=== PATIENT | female | born 1945 | race African-American/Black ===

== ENCOUNTER → 2016-08-21 | Outpatient (CLI) | payer MEDICARE ==
[2016-08-21 17:17] LABS: ABSOLUTE EOSINOPHILS # (AUTO) 0.2 10^3/uL (0.0-0.6); ABSOLUTE LYMPHOCYTES (AUTO) 1.2 10^3/uL (0.5-4.7); ABSOLUTE MONOCYTES (AUTO) 0.5 10^3/uL (0.1-1.4); ABSOLUTE NEUT (AUTO) 1.9 10^3/uL (1.7-8.2); BASOPHILS % (AUTO) 0.9 % (0-2); EOSINOPHILS % (AUTO) 4.9 % (0-6); HEMATOCRIT 30.6 % (36.0-47.0); HEMOGLOBIN 9.9 g/dL (12.0-15.5); HGB HCT DIFFERENCE -0.9; LYMPHOCYTES % (AUTO) 31.4 % (13-45); MEAN CORPUSCULAR HEMOGLOBIN 25.4 pg (27.0-33.4); MEAN CORPUSCULAR HGB CONC 32.3 g/dL (32.0-36.0); MEAN CORPUSCULAR VOLUME 79 fl (80-97); MONOCYTES % (AUTO) 12.2 % (3-13); RED BLOOD COUNT 3.89 10^6/uL (3.72-5.28); SEGMENTED NEUTROPHILS % (AUTO) 50.6 % (42-78); WHITE BLOOD COUNT 3.8 10^3/uL (4.0-10.5)
[2016-08-21 17:39] LABS: ALANINE AMINOTRANSFERASE 28 U/L (9-52); ALBUMIN 4.4 g/dL (3.5-5.0); ALKALINE PHOSPHATASE 73 U/L (38-126); ANION GAP 11 (5-19); ASPARTATE AMINO TRANSFERASE 22 U/L (14-36); BILIRUBIN,DIRECT 0.2 mg/dL (0.0-0.4); BILIRUBIN,TOTAL 0.5 mg/dL (0.2-1.3); BLOOD UREA NITROGEN 20 mg/dL (7-20); CALCIUM 9.9 mg/dL (8.4-10.2); CARBON DIOXIDE 31 mmol/L (22-30); CHLORIDE 102 mmol/L (98-107); CHOLESTEROL 160.55 mg/dL (0-200); CREATININE RESULT 0.59 mg/dL (0.52-1.25); Direct HDL 87 mg/dL (>40); GLUCOSE 84 mg/dL (75-110); MAGNESIUM 1.7 mg/dL (1.6-2.3); POTASSIUM 4.1 mmol/L (3.6-5.0); SODIUM 144.3 mmol/L (137-145); TOTAL PROTEIN 7.6 g/dL (6.3-8.2); TRIGLYCERIDES 49 mg/dL (<150)
[2016-08-21 17:50] LABS: DIRECT LDL 47 mg/dL (<100)
== END ==
LOC: OD 16:10
PROVIDERS: ATTEND Family Medicine
DX: R73.9 Hyperglycemia, unspecified (principal); E78.5 Hyperlipidemia, unspecified; E87.6 Hypokalemia; G31.84 Mild cognitive impairment of uncertain or unknown etiology; Z79.899 Other long term (current) drug therapy; E55.9 Vitamin D deficiency, unspecified
CPT/HCPCS: 36415; 80053; 80061; 82306; 82607; 83036; 83735; 84443; 85025; 86592

== ENCOUNTER 2016-09-15 16:53 | Inpatient (IN) | payer MEDICARE ==
--- NOTE | 2016-09-15 17:13 | ER Document Report ---
ED Respiratory Problem - General Mode of Arrival: Wheelchair Information source: Patient, Relative TRAVEL OUTSIDE OF THE [place] IN LAST 30 DAYS: No - HPI Patient complains to provider of: Short of breath Onset: Other - last few days Duration: Worse/persistent Severity: Moderate Short of Breath: Moderate Cough: Productive <LIS GARDNER - Last Filed: 09/15/16 20:02> <ETHAN PATRICK - Last Filed: 09/15/16 23:47> - General Chief Complaint: Chest Pain Stated Complaint: CHEST PAIN Notes: Patient is a 71-year-old female that presents to the emergency department today with complaints of shortness of breath. Patient states this morning around 1000 -1100 the patient's shortness of breath became worse. Patient states she has "not been feeling well" for the last few days. Patient states she has had a fever and a cough as well as chest tightness. Patient states she used her C- Pap prior to arrival which did not alleviate her shortness of breath. Patient denies a history of asthma, COPD, or congestive heart failure. (LIS GARDNER) - Related Data Allergies/Adverse Reactions: No Known Allergies Allergy (Verified 07/18/12 09:20) Home Medications: Current Home Medications Atorvastatin Calcium 10 mg PO DAILY 09/15/16 [History] Diclofenac Sodium [Voltaren] 75 mg PO BID 09/15/16 [History] Diltiazem HCl [Cartia Xt] 120 mg PO DAILY 09/15/16 [History] Fesoterodine Fumarate [Toviaz] 8 mg PO DAILY 09/15/16 [History] Gabapentin [Gabapentin] 600 mg PO BID 09/15/16 [History] Ramelteon [Rozerem] 8 mg PO QHS 09/15/16 [History] Triamcinolone Acetonide [Aristocort 0.1% Cream 15 gm] 1 applic TP BID 09/15/16 [ History] Zolpidem Tartrate 5 mg PO QHS 09/15/16 [History] Past Medical History - General Information source: Patient, Relative, [facility] Records - Social History Smoking Status: Unknown if Ever Smoked Cigarette use (# per day): No Frequency of alcohol use: None Drug Abuse: None Lives with: Family Family History: Reviewed & Not Pertinent, Arthritis, CAD - chf, DM, Hypertension , Malignancy - Past Medical History Cardiac Medical History: Reports: Hx Hypercholesterolemia, Hx Hypertension Endocrine Medical History: Reports: Hx Diabetes Mellitus Type 2 - pre diabetic Musculoskeltal Medical History: Reports Hx Arthritis - both knees Past Surgical History: Reports: Hx Cholecystectomy, Hx Hysterectomy, Hx Orthopedic Surgery - carpal tunnel, knee - Immunizations Immunizations up to date: Yes Hx Diphtheria, Pertussis, Tetanus Vaccination: Yes <LIS GARDNER - Last Filed: 09/15/16 20:02> Review of Systems - Review of Systems Constitutional: See HPI, Fever EENT: No symptoms reported Cardiovascular: See HPI, Chest pain - chest tightness Respiratory: See HPI, Cough, Short of breath, Wheezing Gastrointestinal: No symptoms reported Genitourinary: No symptoms reported Female Genitourinary: No symptoms reported Musculoskeletal: No symptoms reported Skin: No symptoms reported Hematologic/Lymphatic: No symptoms reported Neurological/Psychological: No symptoms reported -: Yes All other systems reviewed and negative <LIS GARDNER - Last Filed: 09/15/16 20:02> Physical Exam - Vital signs Interpretation: Hypoxic, Tachypneic - General General appearance: Alert In distress: Moderate - Respiratory Respiratory status: Respiratory distress, Depressed respirations Breath sounds: Decreased air movement - Cardiovascular Rhythm: Regular - Abdominal Inspection: Normal Tenderness: Nontender - Extremities General upper extremity: Normal inspection, Normal ROM General lower extremity: Normal inspection, Normal ROM - Neurological Neuro grossly intact: Yes Cognition: Normal Orientation: AAOx4 [place] Coma Scale Eye Opening: Spontaneous Jada Coma Scale Verbal: Oriented [place] Coma Scale Motor: Obeys Commands Jada Coma Scale Total: 15 - Psychological Associated symptoms: Normal affect, Normal mood <ETHAN PATRICK - Last Filed: 09/15/16 23:47> - Vital signs Vitals: Temp Pulse BP Pulse Ox 100.3 F 77 151/96 H 83 L 09/15/16 17:04 09/15/16 17:04 09/15/16 17:04 09/15/16 17:04 Course - Laboratory Result Diagrams: 09/15/16 17:25 09/15/16 18:45 <LIS GARDNER - Last Filed: 09/15/16 20:02> - Laboratory Result Diagrams: 09/15/16 17:25 09/15/16 18:45 <ETHAN PATRICK - Last Filed: 09/15/16 23:47> - Re-evaluation Re-evalutation: 09/15/16 Patient is a 71-year-old female who comes in with cough, hypoxemia, and dyspnea. Patient also febrile. Patient with chest x-ray concerning for pneumonia. Patient denies chest pain. Patient also with slight expiratory wheeze. Given DuoNeb. Started on antibiotics. Patient will be admitted to the [facility] under the hospitalist service. Understands and agrees with plan. Family agrees with plan. Stable time of admission. (ETHAN PATRICK) - Vital Signs Vital signs: Temp Pulse Resp BP Pulse Ox 98.6 F 84 20 141/60 H 100 09/15/16 23:19 09/15/16 23:19 09/15/16 23:19 09/15/16 23:19 09/15/16 23:19 - Laboratory Laboratory results interpreted by me: 09/15/16 09/15/16 09/15/16 17:25 17:25 18:10 Hgb 9.8 L Hct 29.9 L MCV 79 L MCH 26.0 L RDW 14.8 H Seg Neutrophils % 80.8 H Lymphocytes % 11.9 L VBG pH 7.44 H Potassium Creatinine NT-Pro-B Natriuret Pep Urine Ascorbic Acid 40 H 09/15/16 09/15/16 18:45 18:45 Hgb Hct MCV MCH RDW Seg Neutrophils % Lymphocytes % VBG pH Potassium 3.5 L Creatinine 0.51 L NT-Pro-B Natriuret Pep 921 H Urine Ascorbic Acid Critical Care Note - Critical Care Note Total time excluding time spent on procedures (mins): 40 - evaluation and management of respiratory distress, multiple re-evaluations, coordination of admission, counseling of patient and family, initiation of antibiotics for pneumonia <ETHAN PATRICK - Last Filed: 09/15/16 23:47> Discharge <LIS GARDNER - Last Filed: 09/15/16 20:02> - Discharge Admitting Provider: Deshawnist - [facility] Unit Admitted: [facility] <ETHAN PATRICK - Last Filed: 09/15/16 23:47> - Discharge Clinical Impression: Hypoxemia, Respiratory distress Pneumonia Qualifiers: Pneumonia type: due to unspecified organism Laterality: unspecified laterality Lung location: unspecified part of lung Qualified Code(s): J18.9 - Pneumonia, unspecified organism Condition: Stable Disposition: ADMITTED INPATIENT Scribe Attestation: 09/15/16 23:47 I personally performed the services described in the documentation, reviewed and edited the documentation which was dictated to the scribe in my presence, and it accurately records my words and actions. (ETHAN PATRICK) Scribe Documentation - Scribe Written by Scribe:: Blake Casiano, 09/15/2016 acting as scribe for :: Adiel <LIS GARDNER - Last Filed: 09/15/16 20:02>
[2016-09-15 17:45] LABS: ABSOLUTE EOSINOPHILS # (AUTO) 0.1 10^3/uL (0.0-0.6); ABSOLUTE LYMPHOCYTES (AUTO) 0.9 10^3/uL (0.5-4.7); ABSOLUTE MONOCYTES (AUTO) 0.4 10^3/uL (0.1-1.4); ABSOLUTE NEUT (AUTO) 6.1 10^3/uL (1.7-8.2); BASOPHILS % (AUTO) 0.6 % (0-2); EOSINOPHILS % (AUTO) 0.8 % (0-6); HEMATOCRIT 29.9 % (36.0-47.0); HEMOGLOBIN 9.8 g/dL (12.0-15.5); HGB HCT DIFFERENCE -0.5; LYMPHOCYTES % (AUTO) 11.9 % (13-45); MEAN CORPUSCULAR HGB CONC 32.7 g/dL (32.0-36.0); MEAN CORPUSCULAR VOLUME 79 fl (80-97); MONOCYTES % (AUTO) 5.9 % (3-13); RED BLOOD COUNT 3.76 10^6/uL (3.72-5.28); RED CELL DISTRIBUTION WIDTH 14.8 % (11.5-14.0); SEGMENTED NEUTROPHILS % (AUTO) 80.8 % (42-78); WHITE BLOOD COUNT 7.5 10^3/uL (4.0-10.5)
[2016-09-15 17:49] LABS: VENOUS BLOOD BASE EXCESS 6.8 mmol/L; VENOUS BLOOD HCO3 31.8 mmol/L (20-32); VENOUS BLOOD PCO2 47.6 mmHg (35-63); VENOUS BLOOD PH 7.44 (7.30-7.42)
[2016-09-15] MEDS ORDERED: ACETAMINOPHEN 325 MG TABLET PO ONE (17:50)
[2016-09-15 17:52] LABS: PROTHROMBIN TIME 13.2 SEC (11.4-15.4)
--- NOTE | 2016-09-15 18:02 | EKG REPORT ---
SEVERITY:- ABNORMAL ECG - SINUS RHYTHM R WAVE PROGRESSION, ANTERIOR LEADS CONSIDER OLD ANATERIOR PA : Confirmed by: Newton Davis MD 15-Sep-2016 18:02:03
[2016-09-15] MEDS ORDERED: CEFTRIAXONE 1 GM/D5W RTU 50 ML IV ONE (18:03)
[2016-09-15] MEDS ORDERED: AZITHROMYCIN INJ 500 MG VIAL IV ONE (18:03)
[2016-09-15] MEDS ORDERED: IPRATROPIUM/ALBUTEROL 0.5-2.5 MG/3 ML AMPUL NEB ONE (18:06)
[2016-09-15 18:35] LABS: APPEARANCE,URINE CLEAR; BILIRUBIN,URINE NEGATIVE (NEGATIVE); GLUCOSE, URINE NEGATIVE (NEGATIVE); KETONES,URINE NEGATIVE (NEGATIVE); LEUKOCYTE ESTERASE,URINE NEGATIVE (NEGATIVE); NITRITE,URINE NEGATIVE (NEGATIVE); PROTEIN,URINE NEGATIVE (NEGATIVE); URINE SPECIFIC GRAVITY 1.011; UROBILINOGEN,URINE NEGATIVE mg/dL (<2.0)
--- NOTE | 2016-09-15 19:06 | PDOC H&P ---
History of Present Illness Admission Date/PCP: Dr Montenegro 09/15 Patient complains of: Chest pain and shortness of breath History of Present Illness: ALENA FARRIS is a 71 year old female with a known history of diabetes, hypertension nonsmoker Who presented to the ED with increasing shortness of breath over the past 2 weeks Patient states that since she cut down her dose of hydrochlorothiazide she has been more dyspneic; legs have been swollen Today she had a productive cough of yellowish mucus and became extremely dyspneic and experienced precordial chest pain She was brought to the ED for evaluation Chest pain resolved Chest x-ray was suggestive of congestive heart failure ; she was subsequently admitted under hospitalist service for further evaluation and care Past Medical History Cardiac Medical History: Reports: Hyperlipidema, Hypertension Denies: Coronary Artery Disease, Myocardial Infarction Pulmonary Medical History: Denies: Asthma, Bronchitis, Chronic Obstructive Pulmonary Disease (COPD), Pneumonia Neurological Medical History: Denies: Seizures Endocrine Medical History: Reports: Diabetes Mellitus Type 2 - pre diabetic Musculoskeltal Medical History: Reports: Arthritis - both knees Hematology: Reports: Anemia Past Surgical History Past Surgical History: Reports: Cholecystectomy, Hysterectomy, Orthopedic Surgery - carpal tunnel, knee Denies: Pacemaker Social History Lives with: Family Smoking Status: Never Smoker Hx Recreational Drug Use: No - Advance Directive Resuscitation Status: Full Code Surrogate healthcare decision maker:: Her Family History Family History: Reviewed & Not Pertinent, Arthritis, CAD - chf, DM, Hypertension , Malignancy Parental Family History Reviewed: Yes Children Family History Reviewed: Yes Sibling(s) Family History Reviewed.: Yes Medication/Allergy Home Medications: Amlodipine Besylate [Norvasc 5 mg Tablet] 5 mg PO 06/20/12 Calcium Citrate [Calcium Citrate 250 mg Tablet] 250 mg PO 06/20/12 Clonidine HCl [Catapres 0.3 mg Tablet] 0.3 mg PO 06/20/12 Diphenhydramine HCl [Benadryl] 25 mg PO 06/20/12 Ferrous Sulfate [Iron] 325 mg PO 06/20/12 Gabapentin [Neurontin 300 Mg Capsule] 300 mg PO 06/20/12 Hydrochlorothiazide 25 mg PO 06/20/12 Hydrocodone Bit/Acetaminophen [Vicodin 5-500 mg Tablet] 1 tab PO 06/20/12 Iron/Vitamin B Comp W-C [Geritol Complete Tablet] 1 each PO 06/20/12 Lisinopril [Prinivil 40 mg Tablet] 40 mg PO 06/20/12 Metformin HCl [Glumetza ER 500 mg Tablet] 500 mg PO 06/20/12 Multivitamin [Multiple Vitamin Liquid 60 ml] 1 ml PO 06/20/12 Multivitamins W-Iron [Multivitamin-Fe (Chewable) Tablet] 1 tab PO 06/20/12 Potassium Chloride [Klor-Con] 20 meq PO 06/20/12 Simvastatin [Zocor 20 mg Tablet] 20 mg PO QHS 06/20/12 Solifenacin Succinate [Vesicare] 5 mg PO 06/20/12 Solifenacin Succinate [Vesicare] 5 mg PO 06/20/12 Tolterodine Tartrate [Detrol La] 4 mg PO 06/20/12 Zolpidem Tartrate [Ambien 10 mg Tablet] 10 mg PO 06/20/12 Sulfamethoxazole/Trimethoprim [Bactrim Ds Tablet] 1 each PO BID 10 Days Lidocaine [Lidoderm 5% (700 mg) Transdermal Patch] 1 patch TP DAILY #30 adh..patch 07/21/15 Oxycodone HCl 5 mg PO Q6 #30 tablet 07/21/15 Allergies/Adverse Reactions: No Known Allergies Allergy (Verified 07/18/12 09:20) Review of Systems Constitutional: ABSENT: chills, fever(s), headache(s), weight gain, weight loss Eyes: ABSENT: visual disturbances Ears: ABSENT: hearing changes Cardiovascular: PRESENT: as per HPI, chest pain - Usually patient does not have chest pain with exertion; she is just short of breath when she ambulates fast, edema. ABSENT: dyspnea on exertion, orthropnea, palpitations Respiratory: PRESENT: cough, dyspnea, sputum. ABSENT: hemoptysis Gastrointestinal: ABSENT: abdominal pain, constipation, diarrhea, hematemesis, hematochezia, nausea, vomiting Genitourinary: ABSENT: dysuria, hematuria Musculoskeletal: ABSENT: joint swelling Integumentary: ABSENT: rash, wounds Neurological: ABSENT: abnormal gait, abnormal speech, confusion, dizziness, focal weakness, syncope Psychiatric: ABSENT: anxiety, depression, homidical ideation, suicidal ideation Endocrine: ABSENT: cold intolerance, heat intolerance, polydipsia, polyuria Hematologic/Lymphatic: ABSENT: easy bleeding, easy bruising Physical Exam Vital Signs: Temp Pulse Resp BP Pulse Ox 100.3 F 77 22 H 144/99 H 98 09/15/16 17:06 09/15/16 17:06 09/15/16 18:01 09/15/16 18:01 09/15/16 18:01 Intake & Output 09/14/16 09/15/16 09/16/16 00:59 00:59 00:59 Weight 100 kg General appearance: PRESENT: no acute distress, morbidly obese Head exam: PRESENT: atraumatic, normocephalic Eye exam: PRESENT: conjunctiva pink, EOMI, PERRLA. ABSENT: scleral icterus Ear exam: PRESENT: normal external ear exam Mouth exam: PRESENT: moist, tongue midline Neck exam: ABSENT: carotid bruit, JVD, lymphadenopathy, thyromegaly Respiratory exam: PRESENT: decreased breath sounds, rales - both bases. ABSENT : rhonchi, wheezes Cardiovascular exam: PRESENT: RRR. ABSENT: diastolic murmur, rubs, systolic murmur Pulses: PRESENT: normal dorsalis pedis pul Vascular exam: PRESENT: normal capillary refill GI/Abdominal exam: PRESENT: normal bowel sounds, soft. ABSENT: distended, guarding, mass, organolmegaly, rebound, tenderness Rectal exam: PRESENT: deferred Extremities exam: PRESENT: full ROM, +2 edema. ABSENT: calf tenderness, clubbing Neurological exam: PRESENT: alert, awake, oriented to person, oriented to place , oriented to time, oriented to situation, CN II-XII grossly intact. ABSENT: motor sensory deficit Psychiatric exam: PRESENT: appropriate affect, normal mood. ABSENT: homicidal ideation, suicidal ideation Skin exam: PRESENT: dry, intact, warm. ABSENT: cyanosis, rash Results Laboratory Results: 09/15/16 17:25 09/15/16 09/15/16 09/15/16 17:25 17:25 17:25 WBC 7.5 RBC 3.76 Hgb 9.8 L Hct 29.9 L MCV 79 L MCH 26.0 L MCHC 32.7 RDW 14.8 H Plt Count 293 Seg Neutrophils % 80.8 H Lymphocytes % 11.9 L Monocytes % 5.9 Eosinophils % 0.8 Basophils % 0.6 Absolute Neutrophils 6.1 Absolute Lymphocytes 0.9 Absolute Monocytes 0.4 Absolute Eosinophils 0.1 Absolute Basophils 0.0 VBG pH VBG pCO2 VBG HCO3 VBG Base Excess Sodium Cancelled Potassium Cancelled Chloride Cancelled Carbon Dioxide Cancelled Anion Gap Cancelled BUN Cancelled Creatinine Cancelled Est GFR ( Amer) Cancelled Est GFR (Non-Af Amer) Cancelled Glucose Cancelled Lactic Acid 1.6 Calcium Cancelled Total Bilirubin Cancelled AST Cancelled ALT Cancelled Alkaline Phosphatase Cancelled Total Protein Cancelled Albumin Cancelled Urine Color Urine Appearance Urine pH Ur Specific [place] Urine Protein Urine Glucose (UA) Urine Ketones Urine Blood Urine Nitrite Ur Leukocyte Esterase Urine WBC (Auto) Urine RBC (Auto) 09/15/16 09/15/16 17:25 18:10 WBC RBC Hgb Hct MCV MCH MCHC RDW Plt Count Seg Neutrophils % Lymphocytes % Monocytes % Eosinophils % Basophils % Absolute Neutrophils Absolute Lymphocytes Absolute Monocytes Absolute Eosinophils Absolute Basophils VBG pH 7.44 H VBG pCO2 47.6 VBG HCO3 31.8 VBG Base Excess 6.8 Sodium Potassium Chloride Carbon Dioxide Anion Gap BUN Creatinine Est GFR ( Amer) Est GFR (Non-Af Amer) Glucose Lactic Acid Calcium Total Bilirubin AST ALT Alkaline Phosphatase Total Protein Albumin Urine Color YELLOW Urine Appearance CLEAR Urine pH 6.0 Ur Specific [place] 1.011 Urine Protein NEGATIVE Urine Glucose (UA) NEGATIVE Urine Ketones NEGATIVE Urine Blood NEGATIVE Urine Nitrite NEGATIVE Ur Leukocyte Esterase NEGATIVE Urine WBC (Auto) 1 Urine RBC (Auto) 0 09/15/16 09/15/16 17:25 17:25 Creatine Kinase Cancelled CK-MB (CK-2) Cancelled Troponin I Cancelled NT-Pro-B Natriuret Pep Cancelled EKG Comments: SINUS RHYTHM - STMT - * R WAVE PROGRESSION, ANTERIOR LEADS CONSIDER OLD ANATERIOR Impressions: Chest X-Ray 09/15/16 17:13 IMPRESSION: Constellation of findings suggestive of congestive heart failure/ positive fluid balance. Infectious etiology is not excluded. Assessment & Plan - Diagnosis (1) Diastolic CHF, acute on chronic Is this a current diagnosis for this admission?: YesPlan: Last echocardiogram a year ago showed normal left ventricular function We will treat the patient with Lasix and lisinopril Coreg Lipitor aspirin Repeat echocardiogram will be performed on Saturday to compare left ventricular ejection fraction We will also obtain serial troponins (2) Diabetes Qualifiers: Diabetes mellitus type: type 2 Chronic kidney disease stage: unspecified stage Is this a current diagnosis for this admission?: YesPlan: Very well controlled Last hemoglobin A1c was 5.6 We will not order Accu-Cheks Patient will be maintained on a diabetic diet (3) Hypertension Qualifiers: Hypertension type: essential hypertension Qualified Code(s): I10 - Essential (primary) hypertension Is this a current diagnosis for this admission?: YesPlan: Treat as above (4) Pneumonia Qualifiers: Pneumonia type: due to unspecified organism Laterality: unspecified laterality Lung location: unspecified part of lung Qualified Code(s) : J18.9 - Pneumonia, unspecified organism Is this a current diagnosis for this admission?: YesPlan: Productive cough low-grade fever; we will treat the patient with ceftriaxone and Zithromax duonebs when necessary (5) Chest pain Qualifiers: Chest pain type: unspecified Qualified Code(s): R07.9 - Chest pain, unspecified Is this a current diagnosis for this admission?: YesPlan: Serial EKG and troponins (6) RONI (obstructive sleep apnea) Is this a current diagnosis for this admission?: YesPlan: Patient will use on C Pap - Time Time Spent: 50 to 70 Minutes - Inpatient Certification Based on my medical assessment, after consideration of the patient's comorbidities, presenting symptoms, or acuity I expect that the services needed warrant INPATIENT care.: Yes I certify that my determination is in accordance with my understanding of Medicare's requirements for reasonable and necessary INPATIENT services [42 CFR 412.3e].: Yes Medical Necessity: Need Close Monitoring Due to Risk of Patient Decompensation, Need For Continuous Telemetry Monitoring, Need for IV Antibiotics
[2016-09-15] MEDS ORDERED: IPRATROPIUM/ALBUTEROL 0.5-2.5 MG/3 ML AMPUL NEB PRN (19:07)
[2016-09-15] MEDS ORDERED: ASPIRIN 325 MG TABLET, ENT COATED PO ONE (19:15)
[2016-09-15 19:19] LABS: ALANINE AMINOTRANSFERASE 48 U/L (9-52); ALBUMIN 3.7 g/dL (3.5-5.0); ALKALINE PHOSPHATASE 80 U/L (38-126); ANION GAP 13 (5-19); ASPARTATE AMINO TRANSFERASE 28 U/L (14-36); BILIRUBIN,DIRECT 0.1 mg/dL (0.0-0.4); BILIRUBIN,TOTAL 0.5 mg/dL (0.2-1.3); BLOOD UREA NITROGEN 19 mg/dL (7-20); CALCIUM 9.3 mg/dL (8.4-10.2); CARBON DIOXIDE 28 mmol/L (22-30); CHLORIDE 102 mmol/L (98-107); CREATINE KINASE 47 U/L (30-135); CREATININE RESULT 0.51 mg/dL (0.52-1.25); GLUCOSE 103 mg/dL (75-110); POTASSIUM 3.5 mmol/L (3.6-5.0); TOTAL PROTEIN 6.6 g/dL (6.3-8.2)
[2016-09-15] MEDS ORDERED: POTASSIUM CHLORIDE 10 MEQ TABLET.SA PO ONE (19:21)
[2016-09-15 19:42] LABS: CREATINE KINASE MB < 0.22 ng/mL (<4.55); TROPONIN I < 0.012 ng/mL
[2016-09-15] MEDS ORDERED: ATORVASTATIN CALCIUM 80 MG TABLET PO SCH (22:00)
[2016-09-15] MEDS ORDERED: CARVEDILOL 12.5 MG TABLET PO SCH (22:00)
[2016-09-16] MEDS: FUROSEMIDE INJ/PF 20 MG/2 ML SDV IV SCH ×3 (01:51→21:09)
[2016-09-16] MEDS: LISINOPRIL 10 MG TABLET PO SCH ×3 (01:54→21:09)
[2016-09-16] MEDS: FAMOTIDINE 20 MG TABLET PO SCH ×3 (01:55→21:09)
[2016-09-16] MEDS: CARVEDILOL 12.5 MG TABLET PO SCH ×3 (01:55→21:10)
[2016-09-16] MEDS: HYDROCODONE/ACETAMINOPHEN 5-325 MG TABLET PO PRN ×2 (02:19→12:04)
[2016-09-16 07:31] LABS: ALANINE AMINOTRANSFERASE 39 U/L (9-52); ALBUMIN 3.7 g/dL (3.5-5.0); ALKALINE PHOSPHATASE 72 U/L (38-126); ANION GAP 11 (5-19); ASPARTATE AMINO TRANSFERASE 22 U/L (14-36); BILIRUBIN,DIRECT 0.2 mg/dL (0.0-0.4); BILIRUBIN,TOTAL 0.7 mg/dL (0.2-1.3); BLOOD UREA NITROGEN 16 mg/dL (7-20); CALCIUM 9.2 mg/dL (8.4-10.2); CARBON DIOXIDE 31 mmol/L (22-30); CHLORIDE 102 mmol/L (98-107); CREATININE RESULT 0.62 mg/dL (0.52-1.25); GLUCOSE 111 mg/dL (75-110); MAGNESIUM 1.9 mg/dL (1.6-2.3); POTASSIUM 3.2 mmol/L (3.6-5.0); SODIUM 144.1 mmol/L (137-145); TOTAL PROTEIN 6.7 g/dL (6.3-8.2)
[2016-09-16] MEDS: ENOXAPARIN SODIUM INJ 40 MG/0.4 ML DISP.SYRIN SUBCUT SCH (07:42)
[2016-09-16 07:48] LABS: TROPONIN I < 0.012 ng/mL
[2016-09-16] MEDS ORDERED: POTASSIUM CHLORIDE 10 MEQ TABLET.SA PO ONE ×2 (08:45→11:00)
--- NOTE | 2016-09-16 09:05 | EKG REPORT ---
SEVERITY:- ABNORMAL ECG - SINUS RHYTHM ATRIAL PREMATURE COMPLEX ABNRM R PROG, CONSIDER ASMI OR LEAD PLACEMENT : Confirmed by: Newton Davis MD 16-Sep-2016 09:05:19
[2016-09-16] MEDS: ONDANSETRON HCL INJ/PF 4 MG/2 ML SDV IV PRN (10:27)
[2016-09-16] MEDS ORDERED: IPRATROPIUM/ALBUTEROL 0.5-2.5 MG/3 ML AMPUL NEB PRN (10:28)
[2016-09-16] MEDS: CEFTRIAXONE 1 GM/D5W RTU 50 ML IV SCH (10:29)
[2016-09-16] MEDS: CLONIDINE HCL 0.1 MG TABLET PO SCH ×2 (10:30→17:53)
[2016-09-16] MEDS: AZITHROMYCIN 250 MG TABLET PO SCH (10:30)
[2016-09-16] MEDS ORDERED: BENZONATATE 100 MG CAPSULE PO ONE (10:30)
[2016-09-16] MEDS: ASPIRIN 325 MG TABLET, ENT COATED PO SCH (10:31)
[2016-09-16] MEDS ORDERED: SIMVASTATIN 10 MG TABLET PO ONE (11:00)
[2016-09-16] MEDS ORDERED: GABAPENTIN 300 MG CAPSULE PO ONE (11:00)
[2016-09-16] MEDS ORDERED: METFORMIN HCL 500 MG TABLET PO ONE (11:00)
[2016-09-16 11:57] LABS: FOLATE > 20.00 ng/mL (>2.76)
[2016-09-16] MEDS: BENZONATATE 100 MG CAPSULE PO SCH ×2 (13:09→21:10)
[2016-09-16] MEDS: METFORMIN HCL 500 MG TABLET PO SCH ×3 (13:09→21:10)
[2016-09-16] MEDS ORDERED: FERUMOXYTOL 510 MG in NORMAL SALINE 100 ML IV ONE (15:55)
--- NOTE | 2016-09-16 16:00 | PDOC PROGRESS REPORT ---
Subjective Progress Note for:: 09/16/16 Subjective:: Patient is breathing somewhat better today Discussed she still has some chest discomfort but was nauseous and vomiting No abdominal no fever no chills The cardiac enzymes are normal EKG is unchanged The BNP was elevated Physical Exam Vital Signs: Temp Pulse Resp BP Pulse Ox 100.2 F 78 16 170/69 H 96 09/16/16 12:37 09/16/16 13:53 09/16/16 12:37 09/16/16 12:37 09/16/16 12:37 Intake & Output 09/15/16 09/16/16 09/17/16 00:59 00:59 00:59 Intake Total 511 Output Total 1800 Balance -1289 Weight 101 kg 100 kg General appearance: PRESENT: no acute distress, well-developed, well-nourished Head exam: PRESENT: atraumatic, normocephalic Eye exam: PRESENT: conjunctiva pink, EOMI, PERRLA. ABSENT: scleral icterus Ear exam: PRESENT: normal external ear exam Mouth exam: PRESENT: moist, tongue midline Neck exam: ABSENT: carotid bruit, JVD, lymphadenopathy, thyromegaly Respiratory exam: PRESENT: clear to auscultation luis fernando. ABSENT: rales, rhonchi, wheezes Cardiovascular exam: PRESENT: RRR. ABSENT: diastolic murmur, rubs, systolic murmur Pulses: PRESENT: normal dorsalis pedis pul Vascular exam: PRESENT: normal capillary refill GI/Abdominal exam: PRESENT: normal bowel sounds, soft. ABSENT: distended, guarding, mass, organolmegaly, rebound, tenderness Rectal exam: PRESENT: deferred Extremities exam: PRESENT: full ROM. ABSENT: calf tenderness, clubbing, pedal edema Neurological exam: PRESENT: alert, awake, oriented to person, oriented to place , oriented to time, oriented to situation, CN II-XII grossly intact. ABSENT: motor sensory deficit Psychiatric exam: PRESENT: appropriate affect, normal mood. ABSENT: homicidal ideation, suicidal ideation Skin exam: PRESENT: dry, intact, warm. ABSENT: cyanosis, rash Results Laboratory Results: 09/16/16 07:00 09/16/16 09/16/16 09/16/16 07:00 07:00 07:00 Sodium 144.1 Potassium 3.2 L Chloride 102 Carbon Dioxide 31 H Anion Gap 11 BUN 16 Creatinine 0.62 Est GFR ( Amer) > 60 Est GFR (Non-Af Amer) > 60 Glucose 111 H Calcium 9.2 Magnesium 1.9 Iron < 10.1 L TIBC 246 L % Saturation UNABLE TO CALCULATE Ferritin 126.00 Total Bilirubin 0.7 AST 22 ALT 39 Alkaline Phosphatase 72 Total Protein 6.7 Albumin 3.7 Vitamin B12 > 1000.0 H Folate > 20.00 TSH 1.07 09/16/16 09/16/16 00:51 07:00 Troponin I < 0.012 < 0.012 NT-Pro-B Natriuret Pep 1560 H 09/16/16 07:00 Iron < 10.1 L TIBC 246 L % Saturation UNABLE TO CALCULATE Ferritin 126.00 Vitamin B12 > 1000.0 H Folate > 20.00 09/15/16 09/16/16 09/16/16 18:45 00:51 07:00 Troponin I < 0.012 < 0.012 < 0.012 NT-Pro-B Natriuret Pep 1560 H Impressions: Chest X-Ray 09/15/16 17:13 IMPRESSION: Constellation of findings suggestive of congestive heart failure/ positive fluid balance. Infectious etiology is not excluded. Assessment & Plan - Diagnosis (1) Diastolic CHF, acute on chronic Is this a current diagnosis for this admission?: YesPlan: Continue Lasix (2) Diabetes Qualifiers: Diabetes mellitus type: type 2 Chronic kidney disease stage: unspecified stage Is this a current diagnosis for this admission?: Yes (3) Hypertension Qualifiers: Hypertension type: essential hypertension Qualified Code(s): I10 - Essential (primary) hypertension Is this a current diagnosis for this admission?: Yes (4) Pneumonia Qualifiers: Pneumonia type: due to unspecified organism Laterality: unspecified laterality Lung location: unspecified part of lung Qualified Code(s) : J18.9 - Pneumonia, unspecified organism Is this a current diagnosis for this admission?: YesPlan: Continue ceftriaxone and Zithromax (5) Chest pain Qualifiers: Chest pain type: unspecified Qualified Code(s): R07.9 - Chest pain, unspecified Is this a current diagnosis for this admission?: Yes (6) RONI (obstructive sleep apnea) Is this a current diagnosis for this admission?: YesPlan: Continue C Pap at night (7) Iron deficiency anemia Qualifiers: Iron deficiency anemia type: unspecified iron deficiency Qualified Code(s): D50.9 - Iron deficiency anemia, unspecified Is this a current diagnosis for this admission?: YesPlan: Replace iron stools for occult blood - Time Time Spent with patient: 25-34 minutes
[2016-09-16] MEDS: GABAPENTIN 300 MG CAPSULE PO SCH (17:52)
[2016-09-16] MEDS: POTASSIUM CHLORIDE 10 MEQ TABLET.SA PO SCH (17:53)
[2016-09-16] MEDS: SIMVASTATIN 10 MG TABLET PO SCH (21:09)
[2016-09-16] MEDS: ZOLPIDEM TARTRATE 5 MG TABLET PO SCH (21:10)
[2016-09-16] MEDS ORDERED: (PENDING PHARMACY ID) (Ramelteon [Rozerem] 8 MG) PO SCH (22:00)
[2016-09-17] MEDS: HYDROCODONE/ACETAMINOPHEN 5-325 MG TABLET PO PRN (03:37)
[2016-09-17] MEDS ORDERED: ACETAMINOPHEN 325 MG TABLET PO PRN (04:05)
[2016-09-17] MEDS: ACETAMINOPHEN 325 MG TABLET PO PRN (05:07)
[2016-09-17] MEDS: BENZONATATE 100 MG CAPSULE PO SCH ×3 (05:07→22:36)
[2016-09-17] MEDS: ENOXAPARIN SODIUM INJ 40 MG/0.4 ML DISP.SYRIN SUBCUT SCH (07:42)
[2016-09-17] MEDS: CEFTRIAXONE 1 GM/D5W RTU 50 ML IV SCH (09:10)
[2016-09-17] MEDS: FUROSEMIDE INJ/PF 20 MG/2 ML SDV IV SCH ×2 (09:11→22:37)
[2016-09-17] MEDS: POTASSIUM CHLORIDE 10 MEQ TABLET.SA PO SCH ×2 (09:11→18:09)
[2016-09-17] MEDS: GABAPENTIN 300 MG CAPSULE PO SCH ×2 (09:11→18:09)
[2016-09-17] MEDS: ONDANSETRON HCL INJ/PF 4 MG/2 ML SDV IV PRN (09:11)
[2016-09-17] MEDS: FAMOTIDINE 20 MG TABLET PO SCH ×2 (09:12→22:36)
[2016-09-17] MEDS: ASPIRIN 325 MG TABLET, ENT COATED PO SCH (09:12)
[2016-09-17] MEDS: AZITHROMYCIN 250 MG TABLET PO SCH (09:12)
[2016-09-17] MEDS: LISINOPRIL 10 MG TABLET PO SCH ×3 (09:12→22:37)
[2016-09-17] MEDS: CARVEDILOL 12.5 MG TABLET PO SCH ×3 (09:12→22:36)
[2016-09-17] MEDS: METFORMIN HCL 500 MG TABLET PO SCH ×4 (09:12→22:36)
[2016-09-17] MEDS: CLONIDINE HCL 0.1 MG TABLET PO SCH ×2 (09:13→18:09)
--- NOTE | 2016-09-17 09:49 | PDOC PROGRESS REPORT ---
Subjective Progress Note for:: 09/17/16 Subjective:: ALENA FARRIS is a 71 year old female with a known history of diabetes, hypertension nonsmoker Who presented to the ED with increasing shortness of breath over the past 2 weeks Patient states that since she cut down her dose of hydrochlorothiazide she has been more dyspneic; legs have been swollen Today she had a productive cough of yellowish mucus and became extremely dyspneic and experienced precordial chest pain She was brought to the ED for evaluation Chest pain resolved Chest x-ray was suggestive of congestive heart failure ; she was subsequently admitted under hospitalist service for further evaluation and care Patient was treated for presumptive pneumonia and CHF acute on chronic exacerbation Prior cardiac workup was not available An echocardiogram was scheduled for Sunday 09/17 Patient was started on Coreg Lasix lisinopril aspirin and Lipitor Serial troponins remained normal less than 0.012 EKG was unchanged Cultures of the sputum showed gram-negative bacilli; antibiotic coverage was switched to cefepime and Levaquin Today she has no chest pain no shortness of breath She has diuresed her K is on the low side and she was given supplements Echocardiogram is being performed as this note is dictated Physical Exam Vital Signs: Temp Pulse Resp BP Pulse Ox 99.2 F 72 18 174/66 H 97 09/17/16 07:19 09/17/16 08:47 09/17/16 07:19 09/17/16 07:19 09/17/16 07:19 Intake & Output 09/16/16 09/17/16 09/18/16 00:59 00:59 00:59 Intake Total 975 255 Output Total 4500 450 Balance -3525 -195 Weight 101 kg 100 kg 97.5 kg General appearance: PRESENT: no acute distress Head exam: PRESENT: atraumatic, normocephalic Eye exam: PRESENT: conjunctiva pink, EOMI, PERRLA. ABSENT: scleral icterus Neck exam: ABSENT: carotid bruit, JVD, lymphadenopathy, thyromegaly Respiratory exam: PRESENT: decreased breath sounds. ABSENT: accessory muscle use, chest wall tenderness Cardiovascular exam: PRESENT: RRR. ABSENT: diastolic murmur, rubs, systolic murmur GI/Abdominal exam: PRESENT: normal bowel sounds, soft. ABSENT: distended, guarding, mass, organolmegaly, rebound, tenderness Extremities exam: PRESENT: +2 edema Neurological exam: PRESENT: alert, awake, oriented to person, oriented to place , oriented to time, oriented to situation, CN II-XII grossly intact. ABSENT: motor sensory deficit Results Laboratory Results: 09/16/16 07:00 09/16/16 07:00 Iron < 10.1 L TIBC 246 L % Saturation UNABLE TO CALCULATE Ferritin 126.00 Vitamin B12 > 1000.0 H Folate > 20.00 09/16/16 09/16/16 00:51 07:00 Troponin I < 0.012 < 0.012 NT-Pro-B Natriuret Pep 1560 H Impressions: Chest X-Ray 09/15/16 17:13 IMPRESSION: Constellation of findings suggestive of congestive heart failure/ positive fluid balance. Infectious etiology is not excluded. Assessment & Plan - Diagnosis (1) Diastolic CHF, acute on chronic Is this a current diagnosis for this admission?: YesPlan: echocardiogram is pending Continue present management (2) Diabetes Qualifiers: Diabetes mellitus type: type 2 Chronic kidney disease stage: unspecified stage Is this a current diagnosis for this admission?: YesPlan: We decreased metformin to 250 mg daily (3) Hypertension Qualifiers: Hypertension type: essential hypertension Qualified Code(s): I10 - Essential (primary) hypertension Is this a current diagnosis for this admission?: YesPlan: Increase Coreg and lisinopril (4) Pneumonia Qualifiers: Pneumonia type: due to unspecified organism Laterality: unspecified laterality Lung location: unspecified part of lung Qualified Code(s) : J18.9 - Pneumonia, unspecified organism Is this a current diagnosis for this admission?: YesPlan: continue Levaquin and cefepime (5) Chest pain Qualifiers: Chest pain type: unspecified Qualified Code(s): R07.9 - Chest pain, unspecified Is this a current diagnosis for this admission?: YesPlan: Awaiting results of echocardiogram Patient will need further studies (6) ROIN (obstructive sleep apnea) Is this a current diagnosis for this admission?: YesPlan: C Pap at night (7) Iron deficiency anemia Qualifiers: Iron deficiency anemia type: unspecified iron deficiency Qualified Code(s): D50.9 - Iron deficiency anemia, unspecified Is this a current diagnosis for this admission?: YesPlan: Stools for occult blood are pending Iron replacement to be completed tomorrow - Time Time Spent with patient: 35 or more minutes - Overall patient's condition has improved
[2016-09-17] MEDS ORDERED: ATORVASTATIN CALCIUM 10 MG TABLET PO SCH (10:00)
[2016-09-17] MEDS ORDERED: (PENDING PHARMACY ID) (Fesoterodine Fumarate [Toviaz] 8 MG) PO SCH (10:00)
[2016-09-17] MEDS: LEVOFLOXACIN 750 MG/D5W RTU 150 ML IV SCH (10:13)
[2016-09-17 11:01] LABS: ABSOLUTE EOSINOPHILS # (AUTO) 0.1 10^3/uL (0.0-0.6); ABSOLUTE MONOCYTES (AUTO) 0.5 10^3/uL (0.1-1.4); ABSOLUTE NEUT (AUTO) 4.9 10^3/uL (1.7-8.2); BASOPHILS % (AUTO) 0.6 % (0-2); EOSINOPHILS % (AUTO) 1.1 % (0-6); HEMOGLOBIN 9.5 g/dL (12.0-15.5); HGB HCT DIFFERENCE -0.5; LYMPHOCYTES % (AUTO) 15.5 % (13-45); MEAN CORPUSCULAR HEMOGLOBIN 25.4 pg (27.0-33.4); MEAN CORPUSCULAR HGB CONC 32.7 g/dL (32.0-36.0); MEAN CORPUSCULAR VOLUME 78 fl (80-97); MONOCYTES % (AUTO) 7.3 % (3-13); RED BLOOD COUNT 3.73 10^6/uL (3.72-5.28); SEGMENTED NEUTROPHILS % (AUTO) 75.5 % (42-78); WHITE BLOOD COUNT 6.4 10^3/uL (4.0-10.5)
[2016-09-17 11:20] LABS: CHLORIDE 97 mmol/L (98-107); GLUCOSE 120 mg/dL (75-110); POTASSIUM 3.3 mmol/L (3.6-5.0); SODIUM 145.7 mmol/L (137-145)
[2016-09-17 11:21] LABS: ANION GAP 13 (5-19); BLOOD UREA NITROGEN 15 mg/dL (7-20); CALCIUM 9.4 mg/dL (8.4-10.2); CARBON DIOXIDE 36 mmol/L (22-30); CREATININE RESULT 0.54 mg/dL (0.52-1.25); MAGNESIUM 1.7 mg/dL (1.6-2.3)
[2016-09-17] MEDS: CEFEPIME 1 GM/D5W RTU 1 GM/50 ML RTUPB IV SCH ×2 (11:28→22:35)
--- NOTE | 2016-09-17 12:53 | XCELERA REPORT ---
[address] [address] Transthoracic Echocardiogram Report Name: ALENA FARRIS Age: 71 yrs Gender: Female : 1945 Patient Status: Inpatient Patient Location: [id number]\S\[id number]\S\A Study Date: 09/17/2016 09:35 AM Height: 62 in Weight: 220 lb BSA: 2.0 m2 Procedure: A two-dimensional transthoracic echocardiogram with color flow and Doppler was performed. Study Quality: Fair. Reason For Study: chest pain / new onset CHF History: Chest pain. CHF. Ordering Physician: OLU DAVIES Performed By: Pamela Chaudhry Interpretation Summary The left ventricle is normal in size. There is normal left ventricular wall thickness. Left ventricular systolic function is normal. LV EF is > than 65%.% Doppler measurements suggest normal left ventricular diastolic function The left ventricular wall motion is normal. There is no thrombus. The left and right artia are moderately dilated There is no evidence of mitral valve prolapse. There is no mitral valve stenosis. Mild to moderate posteriorly directed MR jet. There is no aortic valvular vegetation. There is no aortic valve stenosis There is no LVOT obstruction. No aortic regurgitation is present. There is no tricuspid stenosis. There is a mild amount of tricuspid regurgitation There is moderate pulmonary hypertension by echo RVSP is 51 mm of Hg , with RA mean of 10. There is no pericardial effusion. MMode/2D Measurements \T\ Calculations RVDd: 3.3 cm LVIDd: 4.4 cm FS: 43.2 % Ao root diam: 2.1 cm IVSd: 0.97 cm LVIDs: 2.5 cm EDV(Teich): 88.2 ml LVPWd: 0.96 cm ESV(Teich): 22.4 ml Ao root area: 3.3 cm2 EF(Teich): 74.6 % LA dimension: 5.0 cm Doppler Measurements \T\ Calculations MV E max roberta: MV P1/2t max roberta: Ao V2 max: LV V1 max P.2 cm/sec 101.7 cm/sec 178.4 cm/sec 8.3 mmHg MV A max roberta: MV P1/2t: 58.6 msec Ao max PG: LV V1 max: 77.5 cm/sec 12.7 mmHg 144.1 cm/sec MV E/A: 1.3 MVA(P1/2t): 3.8 cm2 MV dec slope: 508.2 cm/sec2 MV dec time: 0.20 sec PA V2 max: TR max roberta: 114.5 cm/sec 320.0 cm/sec PA max PG: TR max P.0 mmHg 5.2 mmHg Left Ventricle The left ventricle is normal in size. There is normal left ventricular wall thickness. Left ventricular systolic function is normal. LV EF is > than 65%.%. Doppler measurements suggest normal left ventricular diastolic function. The left ventricular wall motion is normal. There is no thrombus. There is no ventricular septal defect visualized. Right Ventricle The right ventricle is grossly normal size. Atria The right atrium is normal. The left and right artia are moderately dilated. The interatrial septum is intact with no evidence for an atrial septal defect. Mitral Valve There is no evidence of mitral valve prolapse. There is no vegetation seen on the mitral valve. There is no mitral valve stenosis. Mild to moderate posteriorly directed MR jet. Aortic Valve The aortic valve is trileaflet. The aortic valve opens well. There is no aortic valvular vegetation. There is no aortic valve stenosis. There is no LVOT obstruction. No aortic regurgitation is present. Tricuspid Valve There is no tricuspid stenosis. There is a mild amount of tricuspid regurgitation. There is moderate pulmonary hypertension by echo. RVSP is 51 mm of Hg , with RA mean of 10. Pulmonic Valve There is no pulmonic valvular stenosis. There is no pulmonic valvular regurgitation. Great Vessels The aortic root is normal size. Effusions There is no pericardial effusion. : OLU DAVIES > Deborah Hawley
[2016-09-17] MEDS: ZOLPIDEM TARTRATE 5 MG TABLET PO SCH (22:36)
[2016-09-17] MEDS: SIMVASTATIN 10 MG TABLET PO SCH (22:37)
[2016-09-18] MEDS: ACETAMINOPHEN 325 MG TABLET PO PRN (04:13)
[2016-09-18] MEDS: BENZONATATE 100 MG CAPSULE PO SCH ×3 (06:00→21:39)
[2016-09-18 06:04] LABS: ABSOLUTE EOSINOPHILS # (AUTO) 0.2 10^3/uL (0.0-0.6); ABSOLUTE LYMPHOCYTES (AUTO) 1.1 10^3/uL (0.5-4.7); ABSOLUTE MONOCYTES (AUTO) 0.5 10^3/uL (0.1-1.4); ABSOLUTE NEUT (AUTO) 3.2 10^3/uL (1.7-8.2); BASOPHILS % (AUTO) 0.9 % (0-2); EOSINOPHILS % (AUTO) 3.5 % (0-6); HEMATOCRIT 28.2 % (36.0-47.0); HEMOGLOBIN 9.2 g/dL (12.0-15.5); HGB HCT DIFFERENCE -0.6; LYMPHOCYTES % (AUTO) 21.2 % (13-45); MEAN CORPUSCULAR HEMOGLOBIN 25.7 pg (27.0-33.4); MEAN CORPUSCULAR HGB CONC 32.7 g/dL (32.0-36.0); MEAN CORPUSCULAR VOLUME 79 fl (80-97); MONOCYTES % (AUTO) 10.4 % (3-13); RED BLOOD COUNT 3.59 10^6/uL (3.72-5.28); RED CELL DISTRIBUTION WIDTH 14.3 % (11.5-14.0)
[2016-09-18 06:16] LABS: ANION GAP 13 (5-19); BLOOD UREA NITROGEN 17 mg/dL (7-20); CALCIUM 9.2 mg/dL (8.4-10.2); CARBON DIOXIDE 31 mmol/L (22-30); CHLORIDE 99 mmol/L (98-107); CREATININE RESULT 0.57 mg/dL (0.52-1.25); GLUCOSE 91 mg/dL (75-110); MAGNESIUM 1.8 mg/dL (1.6-2.3); POTASSIUM 3.9 mmol/L (3.6-5.0); SODIUM 143.3 mmol/L (137-145)
[2016-09-18] MEDS: FAMOTIDINE 20 MG TABLET PO SCH ×2 (10:42→21:41)
[2016-09-18] MEDS: METFORMIN HCL 500 MG TABLET PO SCH ×4 (10:43→21:39)
[2016-09-18] MEDS: CARVEDILOL 12.5 MG TABLET PO SCH ×2 (10:43→21:41)
[2016-09-18] MEDS: ASPIRIN 325 MG TABLET, ENT COATED PO SCH (10:43)
[2016-09-18] MEDS: LISINOPRIL 10 MG TABLET PO SCH ×2 (10:44→21:40)
[2016-09-18] MEDS: POTASSIUM CHLORIDE 10 MEQ TABLET.SA PO SCH ×2 (10:44→18:19)
[2016-09-18] MEDS: GABAPENTIN 300 MG CAPSULE PO SCH ×2 (10:44→18:16)
[2016-09-18] MEDS: CLONIDINE HCL 0.1 MG TABLET PO SCH ×2 (10:44→18:18)
[2016-09-18] MEDS: FUROSEMIDE INJ/PF 20 MG/2 ML SDV IV SCH ×2 (10:44→21:41)
[2016-09-18] MEDS: LEVOFLOXACIN 750 MG/D5W RTU 150 ML IV SCH (10:45)
[2016-09-18] MEDS: ENOXAPARIN SODIUM INJ 40 MG/0.4 ML DISP.SYRIN SUBCUT SCH (10:45)
[2016-09-18] MEDS: ONDANSETRON HCL INJ/PF 4 MG/2 ML SDV IV PRN (12:16)
[2016-09-18] MEDS: CEFEPIME 1 GM/D5W RTU 1 GM/50 ML RTUPB IV SCH (13:19)
[2016-09-18] MEDS: HYDROCODONE/ACETAMINOPHEN 5-325 MG TABLET PO PRN (20:44)
[2016-09-18] MEDS: ZOLPIDEM TARTRATE 5 MG TABLET PO SCH (21:39)
[2016-09-18] MEDS: SIMVASTATIN 10 MG TABLET PO SCH (21:41)
[2016-09-19 05:12] LABS: ABSOLUTE BASOPHILS # (AUTO) 0.1 10^3/uL (0.0-0.2); ABSOLUTE EOSINOPHILS # (AUTO) 0.3 10^3/uL (0.0-0.6); ABSOLUTE LYMPHOCYTES (AUTO) 1.7 10^3/uL (0.5-4.7); ABSOLUTE MONOCYTES (AUTO) 0.5 10^3/uL (0.1-1.4); BASOPHILS % (AUTO) 1.3 % (0-2); EOSINOPHILS % (AUTO) 4.6 % (0-6); HEMATOCRIT 29.8 % (36.0-47.0); HEMOGLOBIN 9.8 g/dL (12.0-15.5); HGB HCT DIFFERENCE -0.4; LYMPHOCYTES % (AUTO) 30.1 % (13-45); MEAN CORPUSCULAR HEMOGLOBIN 25.6 pg (27.0-33.4); MEAN CORPUSCULAR HGB CONC 32.9 g/dL (32.0-36.0); MEAN CORPUSCULAR VOLUME 78 fl (80-97); MONOCYTES % (AUTO) 9.4 % (3-13); RED BLOOD COUNT 3.83 10^6/uL (3.72-5.28); RED CELL DISTRIBUTION WIDTH 14.3 % (11.5-14.0); SEGMENTED NEUTROPHILS % (AUTO) 54.6 % (42-78); WHITE BLOOD COUNT 5.5 10^3/uL (4.0-10.5)
[2016-09-19] MEDS: BENZONATATE 100 MG CAPSULE PO SCH ×3 (05:33→21:32)
[2016-09-19 05:37] LABS: ANION GAP 13 (5-19); BLOOD UREA NITROGEN 14 mg/dL (7-20); CALCIUM 9.5 mg/dL (8.4-10.2); CARBON DIOXIDE 32 mmol/L (22-30); CHLORIDE 100 mmol/L (98-107); CREATININE RESULT 0.56 mg/dL (0.52-1.25); GLUCOSE 94 mg/dL (75-110); MAGNESIUM 1.7 mg/dL (1.6-2.3); SODIUM 144.5 mmol/L (137-145)
[2016-09-19] MEDS: FUROSEMIDE INJ/PF 20 MG/2 ML SDV IV SCH (07:46)
[2016-09-19] MEDS: METFORMIN HCL 500 MG TABLET PO SCH ×4 (07:47→21:31)
[2016-09-19] MEDS: POTASSIUM CHLORIDE 10 MEQ TABLET.SA PO SCH ×2 (07:48→17:05)
[2016-09-19] MEDS: LISINOPRIL 10 MG TABLET PO SCH ×2 (07:48→21:31)
[2016-09-19] MEDS: ASPIRIN 325 MG TABLET, ENT COATED PO SCH (07:49)
[2016-09-19] MEDS: GABAPENTIN 300 MG CAPSULE PO SCH ×2 (07:49→17:05)
[2016-09-19] MEDS: CARVEDILOL 12.5 MG TABLET PO SCH ×2 (07:49→21:32)
[2016-09-19] MEDS: CLONIDINE HCL 0.1 MG TABLET PO SCH ×2 (07:49→17:05)
[2016-09-19] MEDS: ACETAMINOPHEN 325 MG TABLET PO PRN (07:50)
[2016-09-19] MEDS: ENOXAPARIN SODIUM INJ 40 MG/0.4 ML DISP.SYRIN SUBCUT SCH (07:50)
[2016-09-19] MEDS: FAMOTIDINE 20 MG TABLET PO SCH ×2 (07:50→21:31)
[2016-09-19] MEDS: LEVOFLOXACIN 750 MG/D5W RTU 150 ML IV SCH (07:51)
--- NOTE | 2016-09-19 11:09 | PDOC PROGRESS REPORT ---
Subjective Progress Note for:: 09/18/16 Subjective:: This a follow-up visit for congestive heart failure. The patient was seen earlier this morning. At that time she stated that she felt better. But now is having nausea. Her daughter was present with her in the room. I went over signs of symptoms of congestive heart failure and what to expect as an outpatient. We also talked about fluid restriction as well as daily weights. And optimization of medications. The patient had no chest pain or shortness of breath at that time. Physical Exam Vital Signs: Temp Pulse Resp BP Pulse Ox 98.4 F 69 16 179/80 H 96 09/18/16 11:45 09/18/16 14:08 09/18/16 14:08 09/18/16 11:45 09/18/16 14:08 Intake & Output 09/17/16 09/18/16 09/19/16 06:59 06:59 06:59 Intake Total 719 1706 473 Output Total 3150 3150 700 Balance -7039 -2944 -396 Weight 97.5 kg 95.6 kg General appearance: PRESENT: no acute distress, well-developed, well-nourished Head exam: PRESENT: atraumatic, normocephalic Eye exam: PRESENT: conjunctiva pink. ABSENT: scleral icterus Respiratory exam: PRESENT: decreased breath sounds - At the bases. ABSENT: crackles, rhonchi, wheezes Cardiovascular exam: PRESENT: RRR, systolic murmur. ABSENT: gallop, rubs Pulses: PRESENT: +1 pedal pulses bilateral GI/Abdominal exam: PRESENT: normal bowel sounds, soft. ABSENT: distended, tenderness Extremities exam: PRESENT: +2 edema. ABSENT: clubbing - No cyanosis Neurological exam: PRESENT: alert, awake, oriented to person, oriented to place , oriented to time, oriented to situation, CN II-XII grossly intact Skin exam: PRESENT: dry, normal color, warm Results Laboratory Results: 09/18/16 05:37 09/18/16 05:37 09/18/16 09/18/16 05:37 05:37 WBC 5.0 RBC 3.59 L Hgb 9.2 L Hct 28.2 L MCV 79 L MCH 25.7 L MCHC 32.7 RDW 14.3 H Plt Count 253 Seg Neutrophils % 64.0 Lymphocytes % 21.2 Monocytes % 10.4 Eosinophils % 3.5 Basophils % 0.9 Absolute Neutrophils 3.2 Absolute Lymphocytes 1.1 Absolute Monocytes 0.5 Absolute Eosinophils 0.2 Absolute Basophils 0.0 Sodium 143.3 Potassium 3.9 Chloride 99 Carbon Dioxide 31 H Anion Gap 13 BUN 17 Creatinine 0.57 Est GFR ( Amer) > 60 Est GFR (Non-Af Amer) > 60 Glucose 91 Calcium 9.2 Magnesium 1.8 09/16/16 00:15 Sputum Gram Stain - Final 09/16/16 00:15 Sputum Sputum Culture - Final Pseudomonas Aeruginosa Klebsiella Pneumoniae Normal Krystle 09/16/16 09/16/16 00:51 07:00 Troponin I < 0.012 < 0.012 NT-Pro-B Natriuret Pep 1560 H Impressions: Chest X-Ray 09/15/16 17:13 IMPRESSION: Constellation of findings suggestive of congestive heart failure/ positive fluid balance. Infectious etiology is not excluded. Assessment & Plan - Diagnosis (1) Diastolic CHF, acute on chronic Is this a current diagnosis for this admission?: YesPlan: Continue Lasix IV every 12 hours. Continue fluid restriction. Await echo results. Continue Coreg. Will reevaluate in the morning for conversion to by mouth Lasix. Patient follows with cardiology as an outpatient (2) Diabetes Qualifiers: Diabetes mellitus type: type 2 Chronic kidney disease stage: unspecified stage Is this a current diagnosis for this admission?: YesPlan: Continue Current medications. (3) Hypertension Qualifiers: Hypertension type: essential hypertension Qualified Code(s): I10 - Essential (primary) hypertension Is this a current diagnosis for this admission?: YesPlan: Blood pressure elevated this morning. Patient has not yet received her a.m. medications. Continue to monitor and trend (4) Pneumonia Qualifiers: Pneumonia type: due to unspecified organism Laterality: unspecified laterality Lung location: unspecified part of lung Qualified Code(s) : J18.9 - Pneumonia, unspecified organism Is this a current diagnosis for this admission?: YesPlan: Presumed community-acquired pneumonia likely with gram-positive organisms. Chest x-ray on admission showed lots of fluid. Repeat chest x-ray now that she has been diuresed. No current fever or elevation in white count. Sputum has grown out Klebsiella and Pseudomonas. Discontinue cefepime and continue on with Levaquin. There is no infiltrate on chest x-ray which will repeat in the morning, then we will presume this is bronchitis
[2016-09-19] MEDS ORDERED: FUROSEMIDE INJ/PF 20 MG/2 ML SDV IV ONE (12:00)
[2016-09-19] MEDS: POLYETHYLENE GLYCOL 3350 POWDER 17 GM/1 PACKET PO SCH (13:09)
--- NOTE | 2016-09-19 17:42 | PDOC PROGRESS REPORT ---
Subjective Progress Note for:: 09/19/16 Subjective:: This a follow-up visit for congestive heart failure. The patient was seen earlier this morning. At that time she stated that she felt better. The patient had no chest pain or shortness of breath at that time. Physical Exam Vital Signs: Temp Pulse Resp BP Pulse Ox 97.9 F 66 18 150/84 H 95 09/19/16 12:02 09/19/16 14:00 09/19/16 12:02 09/19/16 12:02 09/19/16 12:02 Intake & Output 09/18/16 09/19/16 09/20/16 06:59 06:59 06:59 Intake Total 1706 1846 320 Output Total 3150 2800 1000 Balance -6529 -822 -111 Weight 95.6 kg 93.7 kg PHYSICAL EXAM: GENERAL: This is a well-developed well-nourished obese -Cypriot female resting in her chair in no acute distress. HEART: Regular rate and rhythm. 2/6 systolic murmurs. No rubs or gallops. LUNGS: Diminished at the bases bilaterally with equal rise and fall of the chest. ABDOMEN: Soft, nontender, nondistended with normoactive bowel sounds EXTREMITIES: No clubbing cyanosis or 1+ pitting edema. Tenderness to palpation of the lower extremities 1+ peripheral pulses. NEURO: Awake, alert, oriented x3. Cranial nerves II through XII grossly intact. PSYCH: Normal affect. Results Laboratory Results: 09/19/16 04:33 09/19/16 04:33 09/19/16 09/19/16 04:33 04:33 WBC 5.5 RBC 3.83 Hgb 9.8 L Hct 29.8 L MCV 78 L MCH 25.6 L MCHC 32.9 RDW 14.3 H Plt Count 267 Seg Neutrophils % 54.6 Lymphocytes % 30.1 Monocytes % 9.4 Eosinophils % 4.6 Basophils % 1.3 Absolute Neutrophils 3.0 Absolute Lymphocytes 1.7 Absolute Monocytes 0.5 Absolute Eosinophils 0.3 Absolute Basophils 0.1 Sodium 144.5 Potassium 4.0 Chloride 100 Carbon Dioxide 32 H Anion Gap 13 BUN 14 Creatinine 0.56 Est GFR ( Amer) > 60 Est GFR (Non-Af Amer) > 60 Glucose 94 Calcium 9.5 Magnesium 1.7 09/16/16 09/16/16 00:51 07:00 Troponin I < 0.012 < 0.012 NT-Pro-B Natriuret Pep 1560 H Impressions: Chest X-Ray 09/19/16 00:00 IMPRESSION: Mild cardiac enlargement and mild central pulmonary edema pattern. Differential diagnosis includes CHF and nonspecific [id number] central pulmonary edema. Assessment & Plan - Diagnosis (1) Diastolic CHF, acute on chronic Is this a current diagnosis for this admission?: YesPlan: Change IV Lasix to 40 mg every 12 hours. We'll likely be able to change to by mouth tomorrow. Continue fluid restriction. Echo shows diastolic heart failure with a normal EF.. Continue Coreg. Continue clonidine at 0.2 mg. Cardiology was consulted as this is a Dr. Hammond patient (2) Diabetes Qualifiers: Diabetes mellitus type: type 2 Chronic kidney disease stage: unspecified stage Is this a current diagnosis for this admission?: Yes (3) Hypertension Qualifiers: Hypertension type: essential hypertension Qualified Code(s): I10 - Essential (primary) hypertension Is this a current diagnosis for this admission?: YesPlan: Blood pressure elevated this morning. Increase clonidine to 0.2 mg. Continue Coreg. Continue lisinopril. If hypertension remains uncontrolled will need to increase Coreg. (4) Pneumonia Qualifiers: Pneumonia type: due to unspecified organism Laterality: unspecified laterality Lung location: unspecified part of lung Qualified Code(s) : J18.9 - Pneumonia, unspecified organism Is this a current diagnosis for this admission?: YesPlan: Presumed community-acquired pneumonia likely with gram-positive organisms. Chest x-ray on admission showed lots of fluid. Repeat chest x-ray shows continued pulmonary edema. No current fever or elevation in white count. Sputum has grown out Klebsiella and Pseudomonas. continue on with Levaquin. There is no infiltrate on chest x-ray. will presume this is bronchitis - Time Time Spent with patient: 15-24 minutes - Inpatient Certification Medical Necessity: Significant Comorbidiites Make Outpatient Treatment Too Risky
--- NOTE | 2016-09-19 19:56 | PDOC CONSULTATION ---
Consultation Consult Date: 09/19/16 Attending physician:: GRETCHEN ARAGON Consult reason:: Congestive heart failure History of Present Illness Admission Date/PCP: 09/15/16 18:46 TERRA DOSS MD Patient complains of: Shortness of breath and pedal edema History of Present Illness: ALENA FARRIS is a 71 year old female with a known history of diabetes, hypertension nonsmoker presented to the ED with increasing shortness of breath over the past 2 weeks. Patient has noted fluctuating blood pressure. She claims that she was seen by her primary care M.D. few days prior to admission and the dose offered diuretics were cut to half. Patient states that since she cut down her dose of hydrochlorothiazide and Lasix, she has been more dyspneic; legs have been swollen. Patient also had a productive cough of yellowish mucus and became extremely dyspneic and experienced precordial chest pain, subsequently Chest pain resolved. Chest x-ray was suggestive of congestive heart failure ; she was subsequently admitted under hospitalist service for further evaluation and care. I was asked to help with CHF management. Of note patient has history of sleep apnea syndrome and claims compliance with it. In fact CPAP machine is noted at bedside table. Past Medical History Cardiac Medical History: Reports: Hyperlipidema, Hypertension Denies: Coronary Artery Disease, Myocardial Infarction Pulmonary Medical History: Denies: Asthma, Bronchitis, Chronic Obstructive Pulmonary Disease (COPD), Pneumonia Neurological Medical History: Denies: Seizures Endocrine Medical History: Reports: Diabetes Mellitus Type 2 - pre diabetic Musculoskeltal Medical History: Reports: Arthritis - both knees Psychiatric Medical History: Denies: Depression Hematology: Reports: Anemia Past Surgical History Past Surgical History: Reports: Cholecystectomy, Hysterectomy, Orthopedic Surgery - carpal tunnel, knee Denies: Pacemaker Social History Information Source: Patient Lives with: Family Smoking Status: Never Smoker Frequency of Alcohol Use: None Hx Recreational Drug Use: Yes Hx Prescription Drug Abuse: No - Advance Directive Resuscitation Status: Full Code Surrogate healthcare decision maker:: Patient's daughter is the surrogate decision maker. Family History Family History: Reviewed & Not Pertinent, Arthritis, CAD - chf, DM, Hypertension , Malignancy Parental Family History Reviewed: Yes Children Family History Reviewed: Yes Sibling(s) Family History Reviewed.: Yes Medication/Allergy Home Medications: Clonidine HCl [Catapres 0.3 mg Tablet] 0.3 mg PO BID 01/18/13 Hydrochlorothiazide 12.5 mg PO QAM 06/20/12 Hydrocodone Bit/Acetaminophen [Vicodin 5-500 mg Tablet] 1 tab PO Q6H PRN Lisinopril [Prinivil 40 mg Tablet] 40 mg PO DAILY 06/20/12 Metformin HCl [Glumetza ER 500 mg Tablet] 500 mg PO BID 06/20/12 Potassium Chloride [Klor-Con] 20 meq PO BID 06/20/12 Simvastatin [Zocor 20 mg Tablet] 20 mg PO QHS 06/20/12 Atorvastatin Calcium 10 mg PO DAILY 09/15/16 Diclofenac Sodium [Voltaren] 75 mg PO BID 09/15/16 Diltiazem HCl [Cartia Xt] 120 mg PO DAILY 09/15/16 Fesoterodine Fumarate [Toviaz] 8 mg PO DAILY 09/15/16 Gabapentin [Gabapentin] 600 mg PO BID 09/15/16 Ramelteon [Rozerem] 8 mg PO QHS 09/15/16 Triamcinolone Acetonide [Aristocort 0.1% Cream 15 gm] 1 applic TP BID 09/15/16 Zolpidem Tartrate 5 mg PO QHS 09/15/16 Allergies/Adverse Reactions: papaya Allergy (Severe, Verified 09/16/16 01:02) Review of Systems Review of Systems: Please see history of present illness and past medical history as wall. Constitutional: No fever or chills reported. Head : No recent chronic headaches, recent head injury. Eyes: No recent eye pain, diplopia, redness, discharge, acute visual changes. Ears: No recent chronic ear pain, acute hearing loss, ear discharge. Oral cavity: No recent ulcerations, bleeding, oral cavity discomfort. Neck: No recent acute neck pain reported. Hematologic: No recent easy bruising or bleeding or hematologic malignancy reported. Lymphatic: No recent lymphatic malignancy, chronic lymphadenopathy reported yet Cardiovascular system review: See history of present illness. Patient denied any recent sustained palpitations, syncope, near syncope. She has noted increasing shortness of breath and some pedal edema. Respiratory system review: Cough with yellowish sputum production but no hemoptysis, blood clots in the lungs reported. Mild Shortness of breath on exertion Gastrointestinal system review: Negative for any recent acute or chronic abdominal pain, hematemesis, melena, recent change in bowel habits. Genitourinary system review: No recent acute or chronic hematuria, flank pain, UTI etc. reported. Skin system review: Negative for any recent abnormal bruising, no rash, no pruritus reported. Neurologic: No prior history of strokes, mini strokes, seizure disorder. Psychologic: No history of major psychosis or major depression reported. Musculoskeletal: Minor aches and pains reported. No acute joint swelling reported. Endocrine: No recent polyuria, polydipsia, recent heat or cold intolerance. Physical Exam Vital Signs: Temp Pulse Resp BP Pulse Ox 99.0 F 71 18 162/86 H 97 09/19/16 17:48 09/19/16 17:48 09/19/16 17:48 09/19/16 17:48 09/19/16 17:48 Intake & Output 09/18/16 09/19/16 09/20/16 06:59 06:59 06:59 Intake Total 1706 1846 720 Output Total 3150 2800 1730 Balance -1444 -954 -1010 Weight 95.6 kg 93.7 kg Exam: GENERAL: well-nourished and in no acute distress. Alert and oriented x3 HEAD: Atraumatic, normocephalic. EYES: Pupils equal round and reactive to light, extraocular movements intact, sclera anicteric, conjunctiva are normal. ENT: TMs normal, nares patent, oropharynx clear without exudates. Moist mucous membranes. No oral ulcerations or bleeding gums noted NECK: supple without lymphadenopathy. Trachea is central. No cervical or axillary lymphadenopathy noted. Carotids are 2+, JVD WNL LUNGS: Respiration seems nonlabored, no significant accessory muscle action noted. Breath sounds clear to auscultation bilaterally and equal noted. No wheezes rales or rhonchi noted. No significant dullness noted on percussion. CHEST: Palpation of the chest wall shows no significant chest wall tenderness. No other significant abnormalities noted. 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 ABDOMEN: Soft, no significant tenderness appreciated, normoactive bowel sounds. No guarding, no rebound. No rigidity noted . No masses appreciated. EXTREMITIES: Pedal pulses are 1-2+, no calf tenderness noted. No clubbing or cyanosis.1+ pedal edema noted NEUROLOGICAL: Focused neurological exam showed no significant neurologic deficit. Normal speech, no focal weakness appreciated. PSYCH: Normal mood, normal affect. Judgment and insight within normal limits. SKIN: No significant ecchymosis, rash, ulcerations or signs of pruritus noted. MUSCULOSKELETAL EXAM: No significant joint swelling noted. Results Laboratory Results: 09/19/16 04:33 09/19/16 04:33 09/19/16 09/19/16 04:33 04:33 WBC 5.5 RBC 3.83 Hgb 9.8 L Hct 29.8 L MCV 78 L MCH 25.6 L MCHC 32.9 RDW 14.3 H Plt Count 267 Seg Neutrophils % 54.6 Lymphocytes % 30.1 Monocytes % 9.4 Eosinophils % 4.6 Basophils % 1.3 Absolute Neutrophils 3.0 Absolute Lymphocytes 1.7 Absolute Monocytes 0.5 Absolute Eosinophils 0.3 Absolute Basophils 0.1 Sodium 144.5 Potassium 4.0 Chloride 100 Carbon Dioxide 32 H Anion Gap 13 BUN 14 Creatinine 0.56 Est GFR ( Amer) > 60 Est GFR (Non-Af Amer) > 60 Glucose 94 Calcium 9.5 Magnesium 1.7 09/16/16 09/16/16 00:51 07:00 Troponin I < 0.012 < 0.012 NT-Pro-B Natriuret Pep 1560 H EKG Comments: Sinus rhythm, no acute ST-T wave changes noted. Impressions: Chest X-Ray 09/19/16 00:00 IMPRESSION: Mild cardiac enlargement and mild central pulmonary edema pattern. Differential diagnosis includes CHF and nonspecific [id number] central pulmonary edema. Assessment & Plan - Diagnosis (1) Diastolic CHF, acute on chronic Is this a current diagnosis for this admission?: Yes (2) Hypertension Qualifiers: Hypertension type: essential hypertension Qualified Code(s): I10 - Essential (primary) hypertension Is this a current diagnosis for this admission?: Yes (3) RONI (obstructive sleep apnea) Is this a current diagnosis for this admission?: Yes (4) Mitral regurgitation Qualifiers: Cardiac valve disease etiology: nonrheumatic Qualified Code(s): I34.0 - Nonrheumatic mitral (valve) insufficiency Is this a current diagnosis for this admission?: Yes (5) Chest pain Qualifiers: Chest pain type: unspecified Qualified Code(s): R07.9 - Chest pain, unspecified Is this a current diagnosis for this admission?: Yes (6) Diabetes mellitus Qualifiers: Diabetes mellitus type: type 2 Diabetes mellitus complication status: with unspecified complications Is this a current diagnosis for this admission?: Yes - Notes Notes: Diastolic CHF, acute on chronic: Most likely precipitated by volume overload, possibly severe hypertension. Patient still seems to be mildly volume overloaded. Agree with diuretic use. May consider spironolactone therapy in this patient. Hypertension: Blood pressure is still elevated. Medications are being adjusted by the hospitalist. If clonidine by mouth is being used, consider every 8 dosing. Obstructive sleep apnea: Patient is compliant with CPAP therapy. Mitral regurgitation: Patient noted to have mild to moderate posteriorly directed jet. There can sometimes be underestimation. Chest pain: Resolved exact etiology not clear. Further evaluation can be completed as an outpatient. There has been no recurrence and cardiac enzymes have been negative and EKG has been negative. Diabetes: This is being managed by hospitalist satisfactorily. Patient to report any further problems. - Time Time Spent: 30 to 50 Minutes - CODE STATUS was discussed, patient remains full code. Surrogate decision-maker patient's daughter. Multiple medical problems were addressed.More than 50% of the time spent coordinating care, discussing management plans with involved caregivers. Management plans discussed with involved personnels. Medical decision making was of moderate to high complexity , patient's has multiple severe comorbidities. Medications reviewed and adjusted accordingly: Yes
[2016-09-19] MEDS: HYDROCODONE/ACETAMINOPHEN 5-325 MG TABLET PO PRN (21:32)
[2016-09-19] MEDS: SIMVASTATIN 10 MG TABLET PO SCH (21:32)
[2016-09-19] MEDS: ZOLPIDEM TARTRATE 5 MG TABLET PO SCH (21:32)
[2016-09-19] MEDS: FUROSEMIDE INJ/PF 40 MG/4 ML SDV IV SCH (21:33)
[2016-09-19] MEDS ORDERED: FUROSEMIDE INJ/PF 20 MG/2 ML SDV IV SCH (22:00)
[2016-09-20] MEDS: ACETAMINOPHEN 325 MG TABLET PO PRN (01:09)
[2016-09-20] MEDS: ONDANSETRON HCL INJ/PF 4 MG/2 ML SDV IV PRN (01:26)
[2016-09-20] MEDS ORDERED: ENALAPRILAT DIHYDRATE INJ/PF 1.25 MG/1 ML SDV IV ONE (02:12)
[2016-09-20] MEDS: ENALAPRILAT DIHYDRATE INJ/PF 1.25 MG/1 ML SDV IV PRN ×2 (02:15→08:21)
[2016-09-20] MEDS: HYDROCODONE/ACETAMINOPHEN 5-325 MG TABLET PO PRN ×2 (05:29→22:55)
[2016-09-20] MEDS: BENZONATATE 100 MG CAPSULE PO SCH ×3 (05:29→22:52)
--- NOTE | 2016-09-20 07:36 | EKG REPORT ---
SEVERITY:- ABNORMAL ECG - WANDERING ATRIAL PACEMAKER PAIRED VENTRICULAR PREMATURE COMPLEXES BORDERLINE LEFT AXIS DEVIATION : Confirmed by: Deborah Hawley MD 20-Sep-2016 07:36:26
[2016-09-20] MEDS: ENOXAPARIN SODIUM INJ 40 MG/0.4 ML DISP.SYRIN SUBCUT SCH (08:21)
[2016-09-20] MEDS: FUROSEMIDE INJ/PF 40 MG/4 ML SDV IV SCH (09:58)
[2016-09-20] MEDS: GABAPENTIN 300 MG CAPSULE PO SCH ×2 (09:59→17:19)
[2016-09-20] MEDS: LISINOPRIL 10 MG TABLET PO SCH (09:59)
[2016-09-20] MEDS: POTASSIUM CHLORIDE 10 MEQ TABLET.SA PO SCH ×2 (10:00→17:19)
[2016-09-20] MEDS: LEVOFLOXACIN 750 MG TABLET PO SCH (10:00)
[2016-09-20] MEDS: FAMOTIDINE 20 MG TABLET PO SCH ×2 (10:01→22:52)
[2016-09-20] MEDS: ASPIRIN 325 MG TABLET, ENT COATED PO SCH (10:01)
[2016-09-20] MEDS: CARVEDILOL 12.5 MG TABLET PO SCH ×2 (10:01→22:52)
[2016-09-20] MEDS: METFORMIN HCL 500 MG TABLET PO SCH ×4 (10:01→22:53)
[2016-09-20] MEDS: CLONIDINE HCL 0.1 MG TABLET PO SCH (10:07)
[2016-09-20 11:12] LABS: ABSOLUTE BASOPHILS # (AUTO) 0.1 10^3/uL (0.0-0.2); ABSOLUTE EOSINOPHILS # (AUTO) 0.2 10^3/uL (0.0-0.6); ABSOLUTE LYMPHOCYTES (AUTO) 1.6 10^3/uL (0.5-4.7); ABSOLUTE MONOCYTES (AUTO) 0.8 10^3/uL (0.1-1.4); ABSOLUTE NEUT (AUTO) 2.8 10^3/uL (1.7-8.2); BASOPHILS % (AUTO) 1.1 % (0-2); EOSINOPHILS % (AUTO) 3.5 % (0-6); HEMATOCRIT 36.4 % (36.0-47.0); HEMOGLOBIN 11.8 g/dL (12.0-15.5); LYMPHOCYTES % (AUTO) 29.1 % (13-45); MEAN CORPUSCULAR HEMOGLOBIN 25.5 pg (27.0-33.4); MEAN CORPUSCULAR HGB CONC 32.6 g/dL (32.0-36.0); MEAN CORPUSCULAR VOLUME 78 fl (80-97); MONOCYTES % (AUTO) 14.1 % (3-13); RED BLOOD COUNT 4.64 10^6/uL (3.72-5.28); RED CELL DISTRIBUTION WIDTH 14.7 % (11.5-14.0); SEGMENTED NEUTROPHILS % (AUTO) 52.2 % (42-78); WHITE BLOOD COUNT 5.4 10^3/uL (4.0-10.5)
[2016-09-20 11:23] LABS: ANION GAP 15 (5-19); BLOOD UREA NITROGEN 22 mg/dL (7-20); CALCIUM 10.5 mg/dL (8.4-10.2); CARBON DIOXIDE 33 mmol/L (22-30); CHLORIDE 97 mmol/L (98-107); CREATININE RESULT 0.65 mg/dL (0.52-1.25); GLUCOSE 125 mg/dL (75-110); MAGNESIUM 1.7 mg/dL (1.6-2.3)
--- NOTE | 2016-09-20 11:41 | PDOC PROGRESS REPORT ---
Subjective Progress Note for:: 09/20/16 Subjective:: Patient seen in the morning along with hospitalist. Elevation to had episodes of wide complex tachycardia and also narrow complex tachycardia. These are mostly atrial tachycardia with rapid ventricular response. Heart rate was noted to be significantly elevated. Patient gives a history of such tachycardia and was on Cardizem for this reason. Subsequently however this was discontinued in favor of starting patient on carvedilol. Patient also has been noted to have very labile and fluctuating hypertension. Blood pressures have been noted to be in extremely high range sometimes over 200 mmHg. Her blood pressure medications has been adjusted. Physical Exam Vital Signs: Temp Pulse Resp BP Pulse Ox 98.6 F 78 16 175/86 H 92 09/20/16 07:55 09/20/16 07:55 09/20/16 07:55 09/20/16 07:55 09/20/16 07:55 Intake & Output 09/19/16 09/20/16 09/21/16 06:59 06:59 06:59 Intake Total 1846 885 Output Total 2800 2130 Balance -954 -1245 Weight 93.7 kg 94.6 kg Exam: GENERAL: well-nourished and in no acute distress. Alert and oriented x3 HEAD: Atraumatic, normocephalic. EYES: Pupils equal round and reactive to light, extraocular movements intact, sclera anicteric, conjunctiva are normal. ENT: TMs normal, nares patent, oropharynx clear without exudates. Moist mucous membranes. No oral ulcerations or bleeding gums noted NECK: supple without lymphadenopathy. Trachea is central. No cervical or axillary lymphadenopathy noted. Carotids are 2+, JVD WNL LUNGS: Respiration seems nonlabored, no significant accessory muscle action noted. Breath sounds clear to auscultation bilaterally and equal noted. No wheezes rales or rhonchi noted. No significant dullness noted on percussion. CHEST: Palpation of the chest wall shows no significant chest wall tenderness. No other significant abnormalities noted. 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 ABDOMEN: Soft, no significant tenderness appreciated, normoactive bowel sounds. No guarding, no rebound. No rigidity noted . No masses appreciated. EXTREMITIES: Pedal pulses are 1-2+, no calf tenderness noted. No clubbing or cyanosis.1+ pedal edema noted NEUROLOGICAL: Focused neurological exam showed no significant neurologic deficit. Normal speech, no focal weakness appreciated. PSYCH: Normal mood, normal affect. Judgment and insight within normal limits. SKIN: No significant ecchymosis, rash, ulcerations or signs of pruritus noted. MUSCULOSKELETAL EXAM: No significant joint swelling noted. Results Laboratory Results: 09/20/16 10:57 09/20/16 10:57 09/20/16 09/20/16 10:57 10:57 WBC 5.4 RBC 4.64 Hgb 11.8 L Hct 36.4 MCV 78 L MCH 25.5 L MCHC 32.6 RDW 14.7 H Plt Count 330 Seg Neutrophils % 52.2 Lymphocytes % 29.1 Monocytes % 14.1 H Eosinophils % 3.5 Basophils % 1.1 Absolute Neutrophils 2.8 Absolute Lymphocytes 1.6 Absolute Monocytes 0.8 Absolute Eosinophils 0.2 Absolute Basophils 0.1 Sodium 145.0 Potassium 4.0 Chloride 97 L Carbon Dioxide 33 H Anion Gap 15 BUN 22 H Creatinine 0.65 Est GFR ( Amer) > 60 Est GFR (Non-Af Amer) > 60 Glucose 125 H Calcium 10.5 H Magnesium 1.7 09/16/16 09/16/16 00:51 07:00 Troponin I < 0.012 < 0.012 NT-Pro-B Natriuret Pep 1560 H Impressions: Chest X-Ray 09/19/16 00:00 IMPRESSION: Mild cardiac enlargement and mild central pulmonary edema pattern. Differential diagnosis includes CHF and nonspecific [id number] central pulmonary edema. Assessment & Plan - Diagnosis (1) Diastolic CHF, acute on chronic Is this a current diagnosis for this admission?: Yes (2) Hypertension Qualifiers: Hypertension type: essential hypertension Qualified Code(s): I10 - Essential (primary) hypertension Is this a current diagnosis for this admission?: Yes (3) RONI (obstructive sleep apnea) Is this a current diagnosis for this admission?: Yes (4) Mitral regurgitation Qualifiers: Cardiac valve disease etiology: nonrheumatic Qualified Code(s): I34.0 - Nonrheumatic mitral (valve) insufficiency Is this a current diagnosis for this admission?: Yes (5) Chest pain Qualifiers: Chest pain type: unspecified Qualified Code(s): R07.9 - Chest pain, unspecified Is this a current diagnosis for this admission?: Yes (6) Diabetes mellitus Qualifiers: Diabetes mellitus type: type 2 Diabetes mellitus complication status: with unspecified complications Is this a current diagnosis for this admission?: Yes - Notes Notes: Diastolic CHF, acute on chronic: Most likely precipitated by volume overload, possibly severe hypertension. Patient still seems to be euvolemic today. Agree with diuretic use. May consider spironolactone therapy in this patient. Hypertension: Blood pressure is still intermittently severely elevated. Medications are being adjusted by the hospitalist. If clonidine by mouth is being used, consider every 8 dosing. After discussion, we decided on switching patient to losartan 100 mg by mouth daily, start Cardizem CD at 240 mg by mouth daily, increase carvedilol to 25 mg by mouth twice a day. Obstructive sleep apnea: Patient is compliant with CPAP therapy. Mitral regurgitation: Patient noted to have mild to moderate posteriorly directed jet. There can sometimes be underestimation. Chest pain: Resolved exact etiology not clear. Further evaluation can be completed as an outpatient. There has been no recurrence and cardiac enzymes have been negative and EKG has been negative. Diabetes: This is being managed by hospitalist satisfactorily. Patient to report any further problems. - Time Time with patient: Greater than 35 minutes - CODE STATUS was discussed, patient remains full code. Surrogate decision-maker unchanged. Multiple medical problems were addressed.More than 50% of the time spent coordinating care, discussing management plans with involved caregivers. Management plans discussed with involved personnels. Medical decision making was of moderate to high complexity, patient's has multiple severe comorbidities. Significant time spent discussing hypertension control and control of heart rhythm problem. Medications reviewed and adjusted accordingly: Yes
[2016-09-20] MEDS: POLYETHYLENE GLYCOL 3350 POWDER 17 GM/1 PACKET PO SCH (11:58)
[2016-09-20] MEDS ORDERED: DILTIAZEM HCL 240 MG CAPSULE.CR PO ONE (12:15)
[2016-09-20] MEDS ORDERED: LOSARTAN POTASSIUM 50 MG TABLET PO ONE (12:15)
[2016-09-20 12:54] LABS: APPEARANCE,URINE CLEAR; BILIRUBIN,URINE NEGATIVE (NEGATIVE); GLUCOSE, URINE NEGATIVE (NEGATIVE); KETONES,URINE NEGATIVE (NEGATIVE); LEUKOCYTE ESTERASE,URINE NEGATIVE (NEGATIVE); NITRITE,URINE NEGATIVE (NEGATIVE); PROTEIN,URINE NEGATIVE (NEGATIVE); URINE SPECIFIC GRAVITY 1.005; UROBILINOGEN,URINE NEGATIVE mg/dL (<2.0)
[2016-09-20] MEDS ORDERED: HYDRALAZINE HCL INJ/PF 20 MG/1 ML SDV IV PRN (13:32)
--- NOTE | 2016-09-20 13:46 | PDOC PROGRESS REPORT ---
Subjective Progress Note for:: 09/20/16 Subjective:: This a follow-up visit for congestive heart failure. The patient was seen earlier this morning. I Was called to the bedside because of elevated heart rates greater than 200. Apparently the patient had done this before around 2 this morning. As I was finishing with the patient cardiology did come into the room and we discussed the case together and made several changes to the patient' s medication regimen patient admitted to having some palpitations but wasn't until after she was told that her heart rates were both 200 that she noticed them. She denied any chest pain. She states that this started when she stood up to straighten out the covers on her bed and sneezed really hard. Physical Exam Vital Signs: Temp Pulse Resp BP Pulse Ox 98.3 F 87 18 120/78 92 09/20/16 12:16 09/20/16 12:16 09/20/16 12:16 09/20/16 12:16 09/20/16 12:16 Intake & Output 09/19/16 09/20/16 09/21/16 06:59 06:59 06:59 Intake Total 1846 885 Output Total 2800 2130 Balance -954 -1245 Weight 93.7 kg 94.6 kg PHYSICAL EXAM: GENERAL: This is a well-developed well-nourished obese -[place] female resting in her chair in no acute distress. HEART: Regular rate and rhythm. 2/6 systolic murmurs. No rubs or gallops. LUNGS: Diminished at the bases bilaterally with equal rise and fall of the chest. ABDOMEN: Soft, nontender, nondistended with normoactive bowel sounds EXTREMITIES: No clubbing cyanosis or 1+ pitting edema. Tenderness to palpation of the lower extremities 1+ peripheral pulses. NEURO: Awake, alert, oriented x3. Cranial nerves II through XII grossly intact. PSYCH: Normal affect. Results Laboratory Results: 09/20/16 10:57 09/20/16 10:57 09/20/16 09/20/16 09/20/16 10:57 10:57 11:45 WBC 5.4 RBC 4.64 Hgb 11.8 L Hct 36.4 MCV 78 L MCH 25.5 L MCHC 32.6 RDW 14.7 H Plt Count 330 Seg Neutrophils % 52.2 Lymphocytes % 29.1 Monocytes % 14.1 H Eosinophils % 3.5 Basophils % 1.1 Absolute Neutrophils 2.8 Absolute Lymphocytes 1.6 Absolute Monocytes 0.8 Absolute Eosinophils 0.2 Absolute Basophils 0.1 Sodium 145.0 Potassium 4.0 Chloride 97 L Carbon Dioxide 33 H Anion Gap 15 BUN 22 H Creatinine 0.65 Est GFR ( Amer) > 60 Est GFR (Non-Af Amer) > 60 Glucose 125 H Calcium 10.5 H Magnesium 1.7 Urine Color STRAW Urine Appearance CLEAR Urine pH 8.0 Ur Specific [place] 1.005 Urine Protein NEGATIVE Urine Glucose (UA) NEGATIVE Urine Ketones NEGATIVE Urine Blood NEGATIVE Urine Nitrite NEGATIVE Ur Leukocyte Esterase NEGATIVE Urine WBC (Auto) 2 Urine RBC (Auto) 1 09/16/16 09/16/16 00:51 07:00 Troponin I < 0.012 < 0.012 NT-Pro-B Natriuret Pep 1560 H Impressions: Chest X-Ray 09/19/16 00:00 IMPRESSION: Mild cardiac enlargement and mild central pulmonary edema pattern. Differential diagnosis includes CHF and nonspecific [id number] central pulmonary edema. Assessment & Plan - Diagnosis (1) Diastolic CHF, acute on chronic Is this a current diagnosis for this admission?: YesPlan: Change Lasix to by mouth. Continue fluid restriction. Echo shows diastolic heart failure with a normal EF. Continue Coreg. Discontinue clonidine. Dr. Hammond is following (2) Diabetes Qualifiers: Diabetes mellitus type: type 2 Chronic kidney disease stage: unspecified stage Plan: Continue Current medications. (3) Hypertension Qualifiers: Hypertension type: essential hypertension Qualified Code(s): I10 - Essential (primary) hypertension Plan: Blood pressure elevated this morning. It was also associated with extreme tachycardia likely SVT. Reinstitute Cardizem at 240 mg. Continue Coreg at 12.5 mg. Discontinue lisinopril 20 mg daily. Begin losartan 100 mg daily. Discontinue clonidine. Continue to monitor. If the patient's blood pressure is generally stable between 160-170 I would feel comfortable sending her home. She did have some readings above 200 (4) Pneumonia Qualifiers: Pneumonia type: due to unspecified organism Laterality: unspecified laterality Lung location: unspecified part of lung Qualified Code(s) : J18.9 - Pneumonia, unspecified organism Plan: Chest x-ray on admission showed lots of fluid. Repeat chest x-ray shows continued pulmonary edema. No current fever or elevation in white count. Sputum has grown out Klebsiella and Pseudomonas. continue on with Levaquin. There is no infiltrate on chest x-ray. will presume this is bronchitis - Time Time Spent with patient: 25-34 minutes - Inpatient Certification Medical Necessity: Need Close Monitoring Due to Risk of Patient Decompensation - Hopefully will discharge tomorrow if blood pressure is consistently stable
[2016-09-20] MEDS ORDERED: CLONIDINE HCL 0.2 MG TABLET PO SCH (14:00)
[2016-09-20] MEDS ORDERED: CLONIDINE HCL 0.1 MG TABLET PO SCH (14:00)
[2016-09-20] MEDS ORDERED: CROMOLYN SODIUM NASAL SPRAY (5.2 MG/SPRAY) 26 ML NASL ONE (14:30)
[2016-09-20] MEDS: FUROSEMIDE 40 MG TABLET PO SCH (17:20)
--- NOTE | 2016-09-20 20:03 | EKG REPORT ---
SEVERITY:- ABNORMAL ECG - SINUS TACHYCARDIA MULTIPLE ATRIAL PREMATURE COMPLEXES BORDERLINE LEFT AXIS DEVIATION : Confirmed by: Deborah Hawley MD 20-Sep-2016 20:02:07
[2016-09-20] MEDS: ZOLPIDEM TARTRATE 5 MG TABLET PO SCH (22:52)
[2016-09-20] MEDS: SIMVASTATIN 10 MG TABLET PO SCH (22:52)
[2016-09-21] MEDS: BENZONATATE 100 MG CAPSULE PO SCH ×2 (06:29→14:21)
[2016-09-21 07:46] LABS: ANION GAP 16 (5-19); BLOOD UREA NITROGEN 23 mg/dL (7-20); CALCIUM 10.1 mg/dL (8.4-10.2); CARBON DIOXIDE 29 mmol/L (22-30); CHLORIDE 97 mmol/L (98-107); CREATININE RESULT 0.75 mg/dL (0.52-1.25); GLUCOSE 121 mg/dL (75-110); POTASSIUM 4.2 mmol/L (3.6-5.0); SODIUM 142.2 mmol/L (137-145)
[2016-09-21] MEDS: ENOXAPARIN SODIUM INJ 40 MG/0.4 ML DISP.SYRIN SUBCUT SCH (07:50)
[2016-09-21] MEDS: GABAPENTIN 300 MG CAPSULE PO SCH (07:51)
[2016-09-21] MEDS: POTASSIUM CHLORIDE 10 MEQ TABLET.SA PO SCH (07:51)
[2016-09-21] MEDS: FUROSEMIDE 40 MG TABLET PO SCH (07:51)
[2016-09-21] MEDS: CARVEDILOL 12.5 MG TABLET PO SCH (07:52)
[2016-09-21] MEDS: ASPIRIN 325 MG TABLET, ENT COATED PO SCH (07:52)
[2016-09-21] MEDS: LEVOFLOXACIN 750 MG TABLET PO SCH (07:52)
[2016-09-21] MEDS: FAMOTIDINE 20 MG TABLET PO SCH (07:52)
[2016-09-21] MEDS: METFORMIN HCL 500 MG TABLET PO SCH ×2 (08:39→14:21)
[2016-09-21] MEDS: ONDANSETRON HCL INJ/PF 4 MG/2 ML SDV IV PRN (08:56)
[2016-09-21] MEDS ORDERED: LOSARTAN POTASSIUM 50 MG TABLET PO SCH (10:00)
[2016-09-21] MEDS ORDERED: CROMOLYN SODIUM NASAL SPRAY (5.2 MG/SPRAY) 26 ML NASL SCH (10:00)
[2016-09-21] MEDS ORDERED: DILTIAZEM HCL 240 MG CAPSULE.CR PO SCH (10:00)
[2016-09-21] MEDS: POLYETHYLENE GLYCOL 3350 POWDER 17 GM/1 PACKET PO SCH (11:39)
--- NOTE | 2016-09-21 12:43 | PDOC PROGRESS REPORT ---
Subjective Progress Note for:: 09/21/16 Subjective:: Patient was seen this morning. She is feeling better. She denied any further episodes that she had yesterday. Yesterday patient Had episodes of wide complex tachycardia and also narrow complex tachycardia. These are mostly atrial tachycardia with rapid ventricular response. Heart rate was noted to be significantly elevated. Patient gives a history of such tachycardia and was on Cardizem for this reason. Subsequently however this was discontinued in favor of starting patient on carvedilol. Patient also has been noted to have very labile and fluctuating hypertension. Blood pressures have been noted to be in extremely high range sometimes over 200 mmHg. Her blood pressure medications has been adjusted. Today after multiple adjustment of blood pressure medication yesterday, her blood pressure has been more stable. Patient also seems to be feeling better. Physical Exam Vital Signs: Temp Pulse Resp BP Pulse Ox 98.4 F 89 18 117/74 95 09/21/16 11:06 09/21/16 11:06 09/21/16 11:06 09/21/16 11:06 09/21/16 11:06 Intake & Output 09/20/16 09/21/16 09/22/16 06:59 06:59 06:59 Intake Total 885 1499 237 Output Total 2130 2650 700 Balance -1245 -1151 -463 Weight 94.6 kg 91.7 kg Exam: GENERAL: well-nourished and in no acute distress. Alert and oriented x3 HEAD: Atraumatic, normocephalic. EYES: Pupils equal round and reactive to light, extraocular movements intact, sclera anicteric, conjunctiva are normal. ENT: TMs normal, nares patent, oropharynx clear without exudates. Moist mucous membranes. No oral ulcerations or bleeding gums noted NECK: supple without lymphadenopathy. Trachea is central. No cervical or axillary lymphadenopathy noted. Carotids are 2+, JVD WNL LUNGS: Respiration seems nonlabored, no significant accessory muscle action noted. Breath sounds clear to auscultation bilaterally and equal noted. No wheezes rales or rhonchi noted. No significant dullness noted on percussion. CHEST: Palpation of the chest wall shows no significant chest wall tenderness. No other significant abnormalities noted. 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 ABDOMEN: Soft, no significant tenderness appreciated, normoactive bowel sounds. No guarding, no rebound. No rigidity noted . No masses appreciated. EXTREMITIES: Pedal pulses are 1-2+, no calf tenderness noted. No clubbing or cyanosis.trace to 1+ pedal edema noted NEUROLOGICAL: Focused neurological exam showed no significant neurologic deficit. Normal speech, no focal weakness appreciated. PSYCH: Normal mood, normal affect. Judgment and insight within normal limits. SKIN: No significant ecchymosis, rash, ulcerations or signs of pruritus noted. MUSCULOSKELETAL EXAM: No significant joint swelling noted. Results Laboratory Results: 09/20/16 10:57 09/21/16 05:37 09/20/16 09/21/16 11:45 05:37 Sodium 142.2 Potassium 4.2 Chloride 97 L Carbon Dioxide 29 Anion Gap 16 BUN 23 H Creatinine 0.75 Est GFR ( Amer) > 60 Est GFR (Non-Af Amer) > 60 Glucose 121 H Calcium 10.1 Urine Color STRAW Urine Appearance CLEAR Urine pH 8.0 Ur Specific [place] 1.005 Urine Protein NEGATIVE Urine Glucose (UA) NEGATIVE Urine Ketones NEGATIVE Urine Blood NEGATIVE Urine Nitrite NEGATIVE Ur Leukocyte Esterase NEGATIVE Urine WBC (Auto) 2 Urine RBC (Auto) 1 09/16/16 09/16/16 09/21/16 00:51 07:00 05:37 Troponin I < 0.012 < 0.012 NT-Pro-B Natriuret Pep 1560 H 107 Impressions: Chest X-Ray 09/19/16 00:00 IMPRESSION: Mild cardiac enlargement and mild central pulmonary edema pattern. Differential diagnosis includes CHF and nonspecific dhge-oh-ztavnxos central pulmonary edema. Assessment & Plan - Diagnosis (1) Diastolic CHF, acute on chronic Is this a current diagnosis for this admission?: Yes (2) Hypertension Qualifiers: Hypertension type: essential hypertension Qualified Code(s): I10 - Essential (primary) hypertension Is this a current diagnosis for this admission?: Yes (3) RONI (obstructive sleep apnea) Is this a current diagnosis for this admission?: Yes (4) Mitral regurgitation Qualifiers: Cardiac valve disease etiology: nonrheumatic Qualified Code(s): I34.0 - Nonrheumatic mitral (valve) insufficiency Is this a current diagnosis for this admission?: Yes (5) Chest pain Qualifiers: Chest pain type: unspecified Qualified Code(s): R07.9 - Chest pain, unspecified Is this a current diagnosis for this admission?: Yes (6) Diabetes mellitus Qualifiers: Diabetes mellitus type: type 2 Diabetes mellitus complication status: with unspecified complications Is this a current diagnosis for this admission?: Yes (7) Atrial tachycardia, paroxysmal Is this a current diagnosis for this admission?: Yes - Notes Notes: Diastolic CHF, acute on chronic: Most likely precipitated by volume overload, possibly severe hypertension. Patient today seems euvolemic. Agree with diuretic use. Will readjust diuretic therapy. BNP level has come back normal. Hypertension: Blood pressure is still elevated. Medications were adjusted yesterday. Patient seems to be on a adequate regimen for the time being.. If clonidine by mouth is being used, consider every 8 dosing. Obstructive sleep apnea: Patient is compliant with CPAP therapy. Mitral regurgitation: Patient noted to have mild to moderate posteriorly directed jet. There can sometimes be underestimation. Chest pain: Resolved exact etiology not clear. Further evaluation can be completed as an outpatient. There has been no recurrence and cardiac enzymes have been negative and EKG has been negative. Atrial tachycardia paroxysmal: Patient placed on Cardizem and carvedilol at increased dose. Patient seems to be tolerating this medication. Diabetes: This is being managed by hospitalist satisfactorily. Patient to report any further problems. - Time Time with patient: Greater than 35 minutes - CODE STATUS was discussed, patient remains full code. Surrogate decision-maker unchanged. Multiple medical problems were addressed.More than 50% of the time spent coordinating care, discussing management plans with involved caregivers. Management plans discussed with involved personnels. Medical decision making was of moderate to high complexity, patient's has multiple severe comorbidities.
--- NOTE | 2016-09-21 13:22 | PDOC DISCHARGE SUMMARY ---
General - Admit/Disc Date/PCP Admission Date/Primary Care Provider: 09/15/16 18:46 TERRA DOSS MD Discharge Date: 09/21/16 - Discharge Diagnosis (1) Diastolic CHF, acute on chronic Summary: Much improved. Will need to follow-up with Dr. Hammond or her PCP in 1 week. He has been given a prescription for Coreg Cardizem, losartan, and Lasix. She should continue aspirin daily. We have discussed continuing daily weights at home. 1500 fluid restriction. 2 g sodium diet. (2) Diabetes Summary: Under reasonable control continue home meds (3) Hypertension Is this a current diagnosis for this admission?: YesSummary: Under much better control now. Patient had episodes of hypertensive urgency. Continue on same medications as outlined in #1. She has been instructed on how to take her blood pressure at home. (4) Pneumonia Is this a current diagnosis for this admission?: YesSummary: Pneumonia has been ruled out. Patient did have sputum positive for Klebsiella and enterococcus. Likely this is acute bronchitis. She will continue home on 5 more days of Levaquin. - Additional Information Resuscitation Status: Full Code Discharge Activity: Activity As Tolerated, Balance Activity w/Rest, Weigh Daily Home Medications: Hydrocodone Bit/Acetaminophen [Vicodin 5-500 mg Tablet ([facility] Only)] 1 tab PO Q6H PRN 06/20/12 Metformin HCl [Glumetza ER 500 mg Tablet] 500 mg PO BID 06/20/12 Potassium Chloride [Klor-Con] 20 meq PO BID 06/20/12 Diclofenac Sodium [Voltaren] 75 mg PO BID 09/15/16 Gabapentin 600 mg PO BID 09/15/16 Triamcinolone Acetonide [Aristocort 0.1% Cream] 1 applic TP BID 09/15/16 Zolpidem Tartrate 5 mg PO QHS 09/15/16 Acetaminophen [Tylenol 325 mg Tablet] 650 mg PO Q6HP PRN tablet 09/21/16 Aspirin [Ecotrin 325 mg EC Tablet] 325 mg PO DAILY tabec 09/21/16 Benzonatate [Tessalon Perles 100 mg Capsule] 100 mg PO Q8 PRN #10 capsule Carvedilol [Coreg 12.5 mg Tablet] 12.5 mg PO Q12 #60 tablet 09/21/16 Cromolyn Sodium [Nasalcrom Nasal [place] (5.2 mg/[place]) 26 ml] 1 spray NASL DAILY spray.pump 09/21/16 Diltiazem HCl [Cardizem Cd 240 mg Capsule.cr] 240 mg PO DAILY #30 capsule.cr Furosemide [Lasix] 40 mg PO BID #60 tablet 09/21/16 Losartan Potassium [Cozaar 50 mg Tablet] 100 mg PO DAILY #30 tablet 09/21/16 Ondansetron HCl [Zofran 4 mg Tablet] 1 tab PO Q6H PRN #20 tablet 09/21/16 Polyethylene Glycol 3350 [Miralax Powder 17 gm/Packet] 17 gm PO NOON powd.pack 09/21/16 Atorvastatin Calcium [Lipitor 10 mg Tablet] 10 mg PO QHS 10/08/16 Ferrous Sulfate [Feosol] 325 mg PO DAILY 10/08/16 History of Present Illness History of Present Illness: History of present illness as per Dr. Layne Patient complains of: Chest pain and shortness of breath History of Present Illness: ALENA FARRIS is a 71 year old female with a known history of diabetes, hypertension nonsmoker Who presented to the ED with increasing shortness of breath over the past 2 weeks Patient states that since she cut down her dose of hydrochlorothiazide she has been more dyspneic; legs have been swollen Today she had a productive cough of yellowish mucus and became extremely dyspneic and experienced precordial chest pain She was brought to the ED for evaluation Chest pain resolved Chest x-ray was suggestive of congestive heart failure ; she was subsequently admitted under hospitalist service for further evaluation and care Hospital Course Hospital Course: Patient was admitted and diuresed well here in the hospital. Fortunately she had several episodes of elevated blood pressures are over 200 and actually SVT with rates over 200. Cardiology was consulted. Her blood pressure medicines were changed around. And she's done very well over the last 24 hours with blood pressures systolically ranging from 130s to 160s. She grew out 2 organisms in her sputum. It was treated with Levaquin for acute bronchitis. Overall she did well and is now fit for discharge Physical Exam Vital Signs: Temp Pulse Resp BP Pulse Ox 98.4 F 89 18 117/74 95 09/21/16 11:06 09/21/16 11:06 09/21/16 11:06 09/21/16 11:06 09/21/16 11:06 Intake & Output 09/20/16 09/21/16 09/22/16 06:59 06:59 06:59 Intake Total 885 1499 237 Output Total 2131 3990 700 Balance -4325 -6671 -463 Weight 94.6 kg 91.7 kg PHYSICAL EXAM: GENERAL: This is a well-developed well-nourished obese -[place] female resting in her bed in no acute distress. HEART: Regular rate and rhythm. 2/6 systolic murmurs. No rubs or gallops. LUNGS: Diminished at the bases bilaterally with equal rise and fall of the chest. ABDOMEN: Soft, nontender, nondistended with normoactive bowel sounds EXTREMITIES: No clubbing cyanosis or 1+ pitting edema. Tenderness to palpation of the lower extremities 1+ peripheral pulses. NEURO: Awake, alert, oriented x3. Cranial nerves II through XII grossly intact. PSYCH: Normal affect. Results Laboratory Results: 09/20/16 10:57 09/21/16 05:37 09/21/16 05:37 Sodium 142.2 Potassium 4.2 Chloride 97 L Carbon Dioxide 29 Anion Gap 16 BUN 23 H Creatinine 0.75 Est GFR ( Amer) > 60 Est GFR (Non-Af Amer) > 60 Glucose 121 H Calcium 10.1 09/16/16 09/16/16 09/21/16 00:51 07:00 05:37 Troponin I < 0.012 < 0.012 NT-Pro-B Natriuret Pep 1560 H 107 Impressions: Chest X-Ray 09/19/16 00:00 IMPRESSION: Mild cardiac enlargement and mild central pulmonary edema pattern. Differential diagnosis includes CHF and nonspecific huiv-wo-rrgnelax central pulmonary edema. Qualifiers PATEINT BEING DISCHARGED WITH ANY OF THE FOLLOWING DIAGNOSIS?: No Plan Time Spent: Less than 30 Minutes
[2016-09-21 16:18] VITALS: BP 141/60
[2016-09-22] MEDS ORDERED: ASPIRIN 81 MG TABLET, ENT COATED PO SCH (10:00)
== END 2016-09-21 17:20 | disposition home or self-care (01) | DRG 291 ==
LOC: ER 16:53 → EH 18:46 → 3W 23:00
PROVIDERS: ADMIT Emergency Medicine; ATTEND Emergency Medicine
PROC: 3E0F73Z Introduction of Anti-inflammatory into Respiratory Tract, Via Natural or Artificial Opening (ICD-10-PCS; principal; 2016-09-16)
DX: I11.0 Hypertensive heart disease with heart failure (principal); J18.9 Pneumonia, unspecified organism; I47.1 Supraventricular tachycardia; E11.22 Type 2 diabetes mellitus with diabetic chronic kidney disease; I50.33 Acute on chronic diastolic (congestive) heart failure; J20.9 Acute bronchitis, unspecified; B96.1 Klebsiella pneumoniae [K. pneumoniae] as the cause of diseases classified elsewhere; B96.5 Pseudomonas (aeruginosa) (mallei) (pseudomallei) as the cause of diseases classified elsewhere; E66.01 Morbid (severe) obesity due to excess calories; Z68.37 Body mass index [BMI] 37.0-37.9, adult; E78.5 Hyperlipidemia, unspecified; M17.0 Bilateral primary osteoarthritis of knee; G47.33 Obstructive sleep apnea (adult) (pediatric); I34.0 Nonrheumatic mitral (valve) insufficiency; D50.9 Iron deficiency anemia, unspecified; E78.00 Pure hypercholesterolemia, unspecified; Z91.018 Allergy to other foods; Z79.82 Long term (current) use of aspirin; Z79.899 Other long term (current) drug therapy; Z90.49 Acquired absence of other specified parts of digestive tract; Z90.710 Acquired absence of both cervix and uterus; Z82.61 Family history of arthritis; Z83.3 Family history of diabetes mellitus; Z80.9 Family history of malignant neoplasm, unspecified; Z82.49 Family history of ischemic heart disease and other diseases of the circulatory system
CPT/HCPCS: 36415; 71010; 71020; 80048; 80053; 81001; 82550; 82553; 82607; 82728; 82746; 82803; 83540; 83550; 83605; 83735; 83880; 84443; 84484; 85025; 85610; 87040; 87070; 87077; 87086; 87186; 87205; 87804; 93005; 93010; 93306; 94640; 96365; 99291; J0692; J0696; J1650; J1940; J1956; J2405; J3490; J7620; Q0138

== ENCOUNTER 2016-10-10 10:00 | Day surgery (SDC) | payer MEDICARE ==
[~2016-10-10 10:00] MED LIST: DIPHENHYDRAMINE HCL 50 MG/ML VIAL ONE; EPINEPHRINE INJ 1 MG/10 ML DISP.SYRIN ONE; FLUMAZENIL INJ 0.5 MG/5 ML VIAL IV ONE; GLUCAGON,HUMAN RECOMB 1 MG INJ ONE; MIDAZOLAM 2 MG/2 ML INJ ONE; NALOXONE HCL INJ/PF 0.4 MG/1 ML SDV ONE; ONDANSETRON HCL INJ/PF 4 MG/2 ML SDV ONE
[2016-10-10] MEDS: MIDAZOLAM 2 MG/2 ML INJ ONE ×4 (11:09→11:25)
[2016-10-10] MEDS: FENTANYL CITRATE INJ/PF 100 MCG/2 ML AMPUL ONE ×3 (11:11→11:27)
--- NOTE | 2016-10-10 11:49 | Operative Report ---
Operative Report DATE OF SURGERY: 10/10/16 Operative Report: The risks, benefits and alternatives of the procedure including risks of bleeding, perforation requiring surgery are explained to the patient detail and informed consent is obtained. The patient is placed in the left lateral decubital position. Timeout is called. Conscious sedation medications are provided. Of note, patient declined propofol sedation. A rectal examination was done which did not reveal any masses, tears or fissures. An Olympus videoscope this inserted into the patient's rectum. The scope was then gradually advanced all the way to the cecum. Cecum was identified by the usual anatomical landmarks including the ileocecal valve as well as the appendiceal office. Photodocumentation was obtained. The scope was then sequentially pulled back via the various segments of the colon including the ascending colon , hepatic flexure, transverse colon, splenic flexure, descending colon and finally into the rectosigmoid portions of the colon. Retroflexion maneuvers performed. The risks benefits and alternatives of the procedure explained to the patient in detail and informed consent is obtained. GIF Olympus video scope was inserted into the patient's mouth and hypopharynx ,the esophagus is identified intubated and insufflated the scope was then advanced through the esophagus stomach and duodenum, retroflexion maneuver is done, the esophagus stomach and first and second portions of the duodenum examined PREOPERATIVE DIAGNOSIS: Iron deficiency anemia. Esophageal reflux disease. POSTOPERATIVE DIAGNOSIS: Right-sided inflammation status post biopsy. Internal hemorrhoids. Gastritis, gastric erosions. Hiatal hernia OPERATION: Endoscopy with biopsy. Colonoscopy with biopsy SURGEON: MAVIS PHAM ANESTHESIA: Moderate Sedation - 6 mg of Versed, 100 g of fentanyl. Conscious sedation monitoring time 30 minutes. TISSUE REMOVED OR ALTERED: Gastric specimen obtained ,right colon Specimen obtained COMPLICATIONS: None. ESTIMATED BLOOD LOSS: none. INTRAOPERATIVE FINDINGS: As noted above. PROCEDURE: Patient tolerated the procedure well. No immediate postprocedure complications are noted. Patient is discharged in good condition. Discharge date 10/10/2016. Discharge diet: Regular. Discharge activity: Regular. 2-3 week follow-up to discuss findings. We'll await on biopsies. Patient is instructed to go to emergency room I'll call the office should there be any further problems or questions.
[2016-10-10 12:41] VITALS: BP 112/67
== END 2016-10-10 12:40 | disposition home or self-care (01) ==
LOC: END 10:00
PROVIDERS: ATTEND Internal Medicine Gastroenterology
PROC: 0DB68ZX Excision of Stomach, Via Natural or Artificial Opening Endoscopic, Diagnostic (ICD-10-PCS; principal; 2016-10-10 10:30)
PROC: 0DBE8ZX Excision of Large Intestine, Via Natural or Artificial Opening Endoscopic, Diagnostic (ICD-10-PCS; 2016-10-10 10:30)
DX: K29.50 Unspecified chronic gastritis without bleeding (principal); K44.9 Diaphragmatic hernia without obstruction or gangrene; K52.9 Noninfective gastroenteritis and colitis, unspecified; K64.8 Other hemorrhoids; D50.9 Iron deficiency anemia, unspecified; K21.9 Gastro-esophageal reflux disease without esophagitis; I11.0 Hypertensive heart disease with heart failure; I50.9 Heart failure, unspecified; Z79.899 Other long term (current) drug therapy; Z79.84 Long term (current) use of oral hypoglycemic drugs; Z88.8 Allergy status to other drugs, medicaments and biological substances
CPT/HCPCS: 43239; 45380; 88342 ×2; 88305 ×2; J2250; J3010; J0171; J1200; J1610; J2310; J2405; J3490

== ENCOUNTER → 2016-10-30 | Outpatient (CLI) | payer MEDICARE ==
[2016-10-30 13:00] LABS: ABSOLUTE EOSINOPHILS # (AUTO) 0.1 10^3/uL (0.0-0.6); ABSOLUTE LYMPHOCYTES (AUTO) 1.4 10^3/uL (0.5-4.7); ABSOLUTE MONOCYTES (AUTO) 0.4 10^3/uL (0.1-1.4); ABSOLUTE NEUT (AUTO) 1.5 10^3/uL (1.7-8.2); BASOPHILS % (AUTO) 0.6 % (0-2); EOSINOPHILS % (AUTO) 3.1 % (0-6); HEMATOCRIT 30.8 % (36.0-47.0); HGB HCT DIFFERENCE -0.8; LYMPHOCYTES % (AUTO) 40.4 % (13-45); MEAN CORPUSCULAR HEMOGLOBIN 25.8 pg (27.0-33.4); MEAN CORPUSCULAR HGB CONC 32.3 g/dL (32.0-36.0); MEAN CORPUSCULAR VOLUME 80 fl (80-97); MONOCYTES % (AUTO) 12.8 % (3-13); RED BLOOD COUNT 3.87 10^6/uL (3.72-5.28); RED CELL DISTRIBUTION WIDTH 16.3 % (11.5-14.0); SEGMENTED NEUTROPHILS % (AUTO) 43.1 % (42-78); WHITE BLOOD COUNT 3.4 10^3/uL (4.0-10.5)
== END ==
LOC: OD 12:04
PROVIDERS: ATTEND Family Medicine
DX: D50.9 Iron deficiency anemia, unspecified (principal)
CPT/HCPCS: 36415; 85025

== ENCOUNTER → 2016-12-21 | Outpatient (CLI) | payer MEDICARE ==
[2016-12-21 16:11] LABS: ABSOLUTE EOSINOPHILS # (AUTO) 0.2 10^3/uL (0.0-0.6); ABSOLUTE LYMPHOCYTES (AUTO) 1.4 10^3/uL (0.5-4.7); ABSOLUTE MONOCYTES (AUTO) 0.5 10^3/uL (0.1-1.4); ABSOLUTE NEUT (AUTO) 1.4 10^3/uL (1.7-8.2); BASOPHILS % (AUTO) 1.1 % (0-2); EOSINOPHILS % (AUTO) 6.1 % (0-6); HEMATOCRIT 31.7 % (36.0-47.0); HEMOGLOBIN 10.4 g/dL (12.0-15.5); HGB HCT DIFFERENCE -0.5; LYMPHOCYTES % (AUTO) 38.8 % (13-45); MEAN CORPUSCULAR HEMOGLOBIN 26.8 pg (27.0-33.4); MEAN CORPUSCULAR HGB CONC 32.7 g/dL (32.0-36.0); MEAN CORPUSCULAR VOLUME 82 fl (80-97); MONOCYTES % (AUTO) 13.2 % (3-13); RED BLOOD COUNT 3.86 10^6/uL (3.72-5.28); RED CELL DISTRIBUTION WIDTH 15.2 % (11.5-14.0); SEGMENTED NEUTROPHILS % (AUTO) 40.8 % (42-78); WHITE BLOOD COUNT 3.5 10^3/uL (4.0-10.5)
[2016-12-21 16:32] LABS: ALANINE AMINOTRANSFERASE 29 U/L (9-52); ALBUMIN 4.3 g/dL (3.5-5.0); ALKALINE PHOSPHATASE 86 U/L (38-126); ANION GAP 11 (5-19); ASPARTATE AMINO TRANSFERASE 21 U/L (14-36); BILIRUBIN,DIRECT 0.3 mg/dL (0.0-0.4); BILIRUBIN,TOTAL 0.5 mg/dL (0.2-1.3); BLOOD UREA NITROGEN 24 mg/dL (7-20); CALCIUM 9.7 mg/dL (8.4-10.2); CARBON DIOXIDE 27 mmol/L (22-30); CHLORIDE 103 mmol/L (98-107); CREATININE RESULT 0.68 mg/dL (0.52-1.25); GLUCOSE 108 mg/dL (75-110); MAGNESIUM 1.9 mg/dL (1.6-2.3); POTASSIUM 4.5 mmol/L (3.6-5.0); SODIUM 141.2 mmol/L (137-145); TOTAL PROTEIN 7.6 g/dL (6.3-8.2)
== END ==
LOC: OD 15:04
PROVIDERS: ATTEND Family Medicine
DX: D50.9 Iron deficiency anemia, unspecified (principal); E87.6 Hypokalemia; Z79.899 Other long term (current) drug therapy
CPT/HCPCS: 36415; 80053; 82542; 82728; 83540; 83550; 83735; 85025

== ENCOUNTER → 2017-03-30 | Outpatient (CLI) | payer MEDICARE ==
[2017-03-30 12:41] LABS: ABSOLUTE EOSINOPHILS # (AUTO) 0.2 10^3/uL (0.0-0.6); ABSOLUTE LYMPHOCYTES (AUTO) 1.5 10^3/uL (0.5-4.7); ABSOLUTE MONOCYTES (AUTO) 0.4 10^3/uL (0.1-1.4); ABSOLUTE NEUT (AUTO) 2.6 10^3/uL (1.7-8.2); BASOPHILS % (AUTO) 0.7 % (0-2); EOSINOPHILS % (AUTO) 4.6 % (0-6); HEMATOCRIT 29.7 % (36.0-47.0); HEMOGLOBIN 9.6 g/dL (12.0-15.5); HGB HCT DIFFERENCE -0.9; LYMPHOCYTES % (AUTO) 31.1 % (13-45); MEAN CORPUSCULAR HEMOGLOBIN 26.8 pg (27.0-33.4); MEAN CORPUSCULAR HGB CONC 32.4 g/dL (32.0-36.0); MEAN CORPUSCULAR VOLUME 83 fl (80-97); MONOCYTES % (AUTO) 8.3 % (3-13); RED BLOOD COUNT 3.59 10^6/uL (3.72-5.28); RED CELL DISTRIBUTION WIDTH 14.4 % (11.5-14.0); SEGMENTED NEUTROPHILS % (AUTO) 55.3 % (42-78); WHITE BLOOD COUNT 4.7 10^3/uL (4.0-10.5)
[2017-03-30 13:00] LABS: ALANINE AMINOTRANSFERASE 28 U/L (9-52); ALBUMIN 4.1 g/dL (3.5-5.0); ALKALINE PHOSPHATASE 87 U/L (38-126); ANION GAP 14 (5-19); ASPARTATE AMINO TRANSFERASE 17 U/L (14-36); BILIRUBIN,DIRECT 0.3 mg/dL (0.0-0.4); BILIRUBIN,TOTAL 0.3 mg/dL (0.2-1.3); BLOOD UREA NITROGEN 27 mg/dL (7-20); CALCIUM 9.6 mg/dL (8.4-10.2); CARBON DIOXIDE 28 mmol/L (22-30); CHLORIDE 108 mmol/L (98-107); CHOLESTEROL 176.67 mg/dL (0-200); CREATININE RESULT 0.78 mg/dL (0.52-1.25); Direct HDL 74 mg/dL (>40); GLUCOSE 87 mg/dL (75-110); POTASSIUM 4.3 mmol/L (3.6-5.0); SODIUM 149.6 mmol/L (137-145); TOTAL PROTEIN 7.1 g/dL (6.3-8.2); TRIGLYCERIDES 62 mg/dL (<150)
[2017-03-30 13:07] LABS: URINE METHADONE SCREEN NEGATIVE; URINE PHENCYCLIDINE SCREEN NEGATIVE
[2017-03-30 13:25] LABS: DIRECT LDL 80 mg/dL (<100)
[2017-03-30 13:54] LABS: URINE BARBITURATES SCREEN UNCONFIRMED POSITIVE; URINE OPIATES LOW UNCONFIRMED POSITIVE
== END ==
LOC: OD 10:40
PROVIDERS: ATTEND Family Medicine
DX: E78.5 Hyperlipidemia, unspecified (principal); R73.9 Hyperglycemia, unspecified; D50.9 Iron deficiency anemia, unspecified; Z79.899 Other long term (current) drug therapy; E55.9 Vitamin D deficiency, unspecified
CPT/HCPCS: 36415; 80053; 80061; 80307; 82306; 82728; 83036; 83540; 83550; 83735; 85025

== ENCOUNTER → 2017-10-21 | Outpatient (CLI) | payer MEDICARE ==
--- NOTE | 2017-10-22 08:08 | RADIOLOGY REPORT (SQ) ---
EXAM DESCRIPTION: MRI LT UPPER JOINT WITHOUT COMPLETED DATE/TIME: 10/21/2017 5:34 pm REASON FOR STUDY: UNSPECIFIED ROTATOR CUFF TEAR OR RUPTURE OF LEFT SHOULDER, NOT SPECIFIED M75.102 UNSP ROTATR-CUFF TEAR/RUPTR OF LEFT SHOULDER, NOT TR COMPARISON: None. TECHNIQUE: Left shoulder images acquired and stored on PACS. Multiplanar imaging to include fat sens itive sequences such as T1, water sensitive sequences such as FST2/STIR, cartilage sensitive sequence s such as FSPD/gradient-echo sequences. LIMITATIONS: None. FINDINGS: BONE MARROW AND CORTEX: No marrow signal abnormalities worrisome for occult fracture or ag gressive marrow replacement process. Subcortical cyst formation over the humeral head greater tubero sity posterior half of the bony glenoid. JOINT OR BURSAL EFFUSION: Small joint effusion extends into the subacromial/ subdeltoid bursa through a tear in the supraspinatus tendon GLENO-HUMERAL ARTICULATION: Normal alignment. High-grade chondromalacia posterior edge of the bony g lenoid with subcortical cyst formation best shown on axial images 7 through 11. ACROMION AND AC JOINT: Type 2 acromion with bulky acromioclavicular joint bony spurring and synovial thickening. This narrows the subacromial space. ROTATOR CUFF AND INTERVAL: Full-thickness tear distal supraspinatus tendon at greater tuberosity reanna chment, best shown on sagittal image 13 and coronal images 9-12. Mild supraspinatus muscle atrophy o n sagittal T1 image 4. Infraspinatus, subscapularis are intact. There is thickening along the rotator interval, question adhesive capsulitis LABRUM AND BICEPS LABRAL COMPLEX: Intra-articular long head biceps tendon is not identified. Suspe ct a long head biceps tendon tear. The upper half of the glenoid labrum is diffusely small and degen erated. No paralabral cysts. REMAINDER OF LABRUM AND IGHL : No gross tear or paralabral cyst formation. Labral evaluation is less than optimal without joint distention. No thickening of IGHL to suggest adhesive capsulitis. PERIARTICULAR AND ADJACENT SOFT TISSUES: No masses or abnormal nodes. OTHER: No other significant finding. IMPRESSION: Full-thickness supraspinatus tear with mild supraspinatus muscle atrophy Torn long head biceps tendon with diffusely degenerated upper half labrum TECHNICAL DOCUMENTATION: JOB ID: [id number] [employer]- All Rights Reserved Reading location - IP/workstation name: [email or web address]
== END ==
LOC: RAD 13:51
PROVIDERS: ATTEND Physician Assistant
DX: M75.102 Unspecified rotator cuff tear or rupture of left shoulder, not specified as traumatic (principal)

== ENCOUNTER → 2017-11-04 | Outpatient (CLI) | payer MEDICARE ==
[2017-11-04 14:15] LABS: ABSOLUTE EOSINOPHILS # (AUTO) 0.2 10^3/uL (0.0-0.6); ABSOLUTE LYMPHOCYTES (AUTO) 1.3 10^3/uL (0.5-4.7); ABSOLUTE MONOCYTES (AUTO) 0.4 10^3/uL (0.1-1.4); ABSOLUTE NEUT (AUTO) 2.4 10^3/uL (1.7-8.2); BASOPHILS % (AUTO) 0.9 % (0-2); EOSINOPHILS % (AUTO) 4.3 % (0-6); HEMATOCRIT 33.2 % (36.0-47.0); HEMOGLOBIN 10.6 g/dL (12.0-15.5); MEAN CORPUSCULAR HEMOGLOBIN 25.8 pg (27.0-33.4); MEAN CORPUSCULAR HGB CONC 31.9 g/dL (32.0-36.0); MEAN CORPUSCULAR VOLUME 81 fl (80-97); MONOCYTES % (AUTO) 9.4 % (3-13); PLATELET COUNT 323 10^3/uL (150-450); RED BLOOD COUNT 4.11 10^6/uL (3.72-5.28); RED CELL DISTRIBUTION WIDTH 13.6 % (11.5-14.0); SEGMENTED NEUTROPHILS % (AUTO) 55.4 % (42-78); TOTAL CELLS COUNTED % (AUTO) 100 %; WHITE BLOOD COUNT 4.3 10^3/uL (4.0-10.5)
[2017-11-04 14:28] LABS: ALANINE AMINOTRANSFERASE 23 U/L (9-52); ALBUMIN 4.1 g/dL (3.5-5.0); ALKALINE PHOSPHATASE 80 U/L (38-126); ANION GAP 11 (5-19); ASPARTATE AMINO TRANSFERASE 16 U/L (14-36); BILIRUBIN,DIRECT 0.3 mg/dL (0.0-0.4); BILIRUBIN,TOTAL 0.3 mg/dL (0.2-1.3); BLOOD UREA NITROGEN 21 mg/dL (7-20); CALCIUM 9.9 mg/dL (8.4-10.2); CARBON DIOXIDE 32 mmol/L (22-30); CHLORIDE 103 mmol/L (98-107); CHOLESTEROL 160.12 mg/dL (0-200); GLUCOSE 116 mg/dL (75-110); POTASSIUM 3.9 mmol/L (3.6-5.0); SODIUM 145.8 mmol/L (137-145); TOTAL PROTEIN 7.4 g/dL (6.3-8.2); TRIGLYCERIDES 94 mg/dL (<150)
[2017-11-04 14:39] LABS: DIRECT LDL 68 mg/dL (<100)
== END ==
LOC: OD 12:24
PROVIDERS: ATTEND Family Medicine
DX: E78.5 Hyperlipidemia, unspecified (principal); R73.9 Hyperglycemia, unspecified; E55.9 Vitamin D deficiency, unspecified; Z79.899 Other long term (current) drug therapy
CPT/HCPCS: 36415; 80053; 80061; 82306; 83036; 84443; 85025

== ENCOUNTER → 2018-04-07 | Outpatient (CLI) | payer MEDICARE ==
--- NOTE | 2018-04-08 09:05 | RADIOLOGY REPORT (SQ) ---
EXAM DESCRIPTION: MRI LT UPPER JOINT WITHOUT COMPLETED DATE/TIME: 04/07/2018 8:38 pm REASON FOR STUDY: M75.102 UNSP ROTATR-CUFF TEAR/RUPTR OF LEFT SHOULDER, NOT TRAUMA M75.102 UNSP ROT ATR-CUFF TEAR/RUPTR OF LEFT SHOULDER, NOT TR COMPARISON: 10/21/2017 TECHNIQUE: Left shoulder images acquired and stored on PACS. Multiplanar imaging to include fat sens itive sequences such as T1, water sensitive sequences such as FST2/STIR, cartilage sensitive sequence s such as FSPD/gradient-echo sequences. LIMITATIONS: Motion. Artifact from prior surgery. FINDINGS: Superior migration of the humeral head. Suture anchors in the humeral head from lateral a pproach. Fluid in the subacromial bursa. Abnormal high T2 signal in supraspinatus tendon to the lev el of the AC joint. Similar high-signal consistent with full-thickness tear of the infraspinatus conner roaching full width. IMPRESSION: Recurrent tears of the supraspinatus and infraspinatus. TECHNICAL DOCUMENTATION: JOB ID: [id number] [employer]- All Rights Reserved Reading location - IP/workstation name: [email or web address]
== END ==
LOC: RAD 20:03
PROVIDERS: ATTEND Physician Assistant
DX: M75.122 Complete rotator cuff tear or rupture of left shoulder, not specified as traumatic (principal)

== ENCOUNTER → 2018-09-24 | Outpatient (CLI) | payer MEDICARE ==
[2018-09-24 11:57] LABS: ABSOLUTE EOSINOPHILS # (AUTO) 0.2 10^3/uL (0.0-0.6); ABSOLUTE LYMPHOCYTES (AUTO) 1.3 10^3/uL (0.5-4.7); ABSOLUTE MONOCYTES (AUTO) 0.4 10^3/uL (0.1-1.4); ABSOLUTE NEUT (AUTO) 1.6 10^3/uL (1.7-8.2); BASOPHILS % (AUTO) 1.3 % (0-2); EOSINOPHILS % (AUTO) 4.8 % (0-6); HEMATOCRIT 31.4 % (36.0-47.0); HEMOGLOBIN 10.2 g/dL (12.0-15.5); LYMPHOCYTES % (AUTO) 37.2 % (13-45); MEAN CORPUSCULAR HEMOGLOBIN 24.8 pg (27.0-33.4); MEAN CORPUSCULAR HGB CONC 32.5 g/dL (32.0-36.0); MEAN CORPUSCULAR VOLUME 76 fl (80-97); MONOCYTES % (AUTO) 11.4 % (3-13); RED BLOOD COUNT 4.11 10^6/uL (3.72-5.28); RED CELL DISTRIBUTION WIDTH 16.7 % (11.5-14.0); SEGMENTED NEUTROPHILS % (AUTO) 45.3 % (42-78); TOTAL CELLS COUNTED % (AUTO) 100 %; WHITE BLOOD COUNT 3.5 10^3/uL (4.0-10.5)
[2018-09-24 12:34] LABS: CHOLESTEROL 182.53 mg/dL (0-200); TRIGLYCERIDES 47 mg/dL (<150)
[2018-09-24 12:45] LABS: DIRECT LDL 77 mg/dL (<100)
[2018-09-24 12:52] LABS: PLATELET COUNT 309 10^3/uL (150-450)
[2018-10-06 07:21] LABS: HYDROMORPHONE 65 ng/mL (.)
== END ==
LOC: OD 10:24
PROVIDERS: ATTEND Family Medicine
DX: E78.5 Hyperlipidemia, unspecified (principal); E87.6 Hypokalemia; E55.9 Vitamin D deficiency, unspecified; E53.9 Vitamin B deficiency, unspecified; M15.9 Polyosteoarthritis, unspecified; R73.9 Hyperglycemia, unspecified; Z79.899 Other long term (current) drug therapy
CPT/HCPCS: 36415; 82607; 83735; 85025; 83036; 82306; 80061; G0480; 80361

== ENCOUNTER → 2018-12-23 | Outpatient (CLI) | payer MEDICARE ==
[2018-12-23 17:40] LABS: ABSOLUTE EOSINOPHILS # (AUTO) 0.1 10^3/uL (0.0-0.6); ABSOLUTE LYMPHOCYTES (AUTO) 1.2 10^3/uL (0.5-4.7); ABSOLUTE MONOCYTES (AUTO) 0.4 10^3/uL (0.1-1.4); ABSOLUTE NEUT (AUTO) 2.3 10^3/uL (1.7-8.2); BASOPHILS % (AUTO) 0.6 % (0-2); HEMATOCRIT 30.8 % (36.0-47.0); HEMOGLOBIN 9.9 g/dL (12.0-15.5); LYMPHOCYTES % (AUTO) 30.7 % (13-45); MEAN CORPUSCULAR HGB CONC 32.2 g/dL (32.0-36.0); MEAN CORPUSCULAR VOLUME 78 fl (80-97); MONOCYTES % (AUTO) 9.4 % (3-13); PLATELET COUNT 267 10^3/uL (150-450); RED BLOOD COUNT 3.97 10^6/uL (3.72-5.28); RED CELL DISTRIBUTION WIDTH 15.9 % (11.5-14.0); SEGMENTED NEUTROPHILS % (AUTO) 56.3 % (42-78); TOTAL CELLS COUNTED % (AUTO) 100 %
[2018-12-24 17:17] LABS: ALANINE AMINOTRANSFERASE 25 U/L (9-52); ALKALINE PHOSPHATASE 96 U/L (38-126); ANION GAP 8 (5-19); ASPARTATE AMINO TRANSFERASE 19 U/L (14-36); BILIRUBIN,DIRECT 0.1 mg/dL (0.0-0.4); BILIRUBIN,TOTAL 0.3 mg/dL (0.2-1.3); BLOOD UREA NITROGEN 19 mg/dL (7-20); CALCIUM 9.6 mg/dL (8.4-10.2); CARBON DIOXIDE 26 mmol/L (22-30); CHLORIDE 106 mmol/L (98-107); GLUCOSE 115 mg/dL (75-110); IRON(TIBC) 58.7 ug/dL (37-170); POTASSIUM 4.5 mmol/L (3.6-5.0); TOTAL PROTEIN 7.2 g/dL (6.3-8.2)
== END ==
LOC: OD 16:20
PROVIDERS: ATTEND Family Medicine
DX: E78.5 Hyperlipidemia, unspecified (principal); D63.8 Anemia in other chronic diseases classified elsewhere; E53.9 Vitamin B deficiency, unspecified
CPT/HCPCS: 36415; 80053; 82607; 83540; 83550; 85025

== ENCOUNTER → 2019-03-24 | Outpatient (CLI) | payer MEDICARE ==
[2019-03-24 14:38] LABS: ABSOLUTE EOSINOPHILS # (AUTO) 0.2 10^3/uL (0.0-0.6); ABSOLUTE LYMPHOCYTES (AUTO) 1.4 10^3/uL (0.5-4.7); ABSOLUTE MONOCYTES (AUTO) 0.4 10^3/uL (0.1-1.4); ABSOLUTE NEUT (AUTO) 1.6 10^3/uL (1.7-8.2); BASOPHILS % (AUTO) 0.7 % (0-2); EOSINOPHILS % (AUTO) 6.1 % (0-6); HEMATOCRIT 30.8 % (36.0-47.0); HEMOGLOBIN 9.8 g/dL (12.0-15.5); LYMPHOCYTES % (AUTO) 37.4 % (13-45); MEAN CORPUSCULAR HGB CONC 31.9 g/dL (32.0-36.0); MEAN CORPUSCULAR VOLUME 78 fl (80-97); MONOCYTES % (AUTO) 11.9 % (3-13); PLATELET COUNT 279 10^3/uL (150-450); RED BLOOD COUNT 3.93 10^6/uL (3.72-5.28); RED CELL DISTRIBUTION WIDTH 15.3 % (11.5-14.0); SEGMENTED NEUTROPHILS % (AUTO) 43.9 % (42-78); TOTAL CELLS COUNTED % (AUTO) 100 %; WHITE BLOOD COUNT 3.7 10^3/uL (4.0-10.5)
[2019-03-24 15:02] LABS: ANION GAP 9 (5-19); BLOOD UREA NITROGEN 20 mg/dL (7-20); CALCIUM 9.7 mg/dL (8.4-10.2); CARBON DIOXIDE 29 mmol/L (22-30); CHLORIDE 108 mmol/L (98-107); CHOLESTEROL 158.12 mg/dL (0-200); GLUCOSE 96 mg/dL (75-110); POTASSIUM 4.4 mmol/L (3.6-5.0); TRIGLYCERIDES 47 mg/dL (<150)
[2019-03-24 15:13] LABS: DIRECT LDL 64 mg/dL (<100)
== END ==
LOC: OD 13:20
PROVIDERS: ATTEND Family Medicine
DX: E87.6 Hypokalemia (principal); D63.8 Anemia in other chronic diseases classified elsewhere; E53.9 Vitamin B deficiency, unspecified; E55.9 Vitamin D deficiency, unspecified; R73.9 Hyperglycemia, unspecified; E78.5 Hyperlipidemia, unspecified
CPT/HCPCS: 36415; 80048; 80061; 82306; 82607; 83036; 83735; 84443; 85025

== ENCOUNTER → 2019-07-03 | Outpatient (CLI) | payer MEDICARE ==
--- NOTE | 2019-07-03 14:43 | RADIOLOGY REPORT (SQ) ---
EXAM DESCRIPTION: CHEST PA/LATERAL COMPLETED DATE/TIME: 07/03/2019 1:56 pm REASON FOR STUDY: ACUTE BRONCHITIS, UNSPECIFIED COMPARISON: 09/19/2016 EXAM PARAMETERS: NUMBER OF VIEWS: two views TECHNIQUE: Digital Frontal and Lateral radiographic views of the chest acquired. RADIATION DOSE: NA LIMITATIONS: none FINDINGS: LUNGS AND PLEURA: The slight haziness in the right upper lobe. Mild linear atelectasis in the left lung. MEDIASTINUM AND HILAR STRUCTURES: No masses or contour abnormalities. HEART AND VASCULAR STRUCTURES: Heart size is borderline. No pulmonary edema. BONES: No acute findings. HARDWARE: None in the chest. OTHER: No other significant finding. IMPRESSION: Borderline heart size without pulmonary edema. Cannot exclude limited right upper lobe pneumonia. TECHNICAL DOCUMENTATION: JOB ID: [id number] [employer]- All Rights Reserved Reading location - IP/workstation name: [email or web address]
--- NOTE | 2019-07-03 14:45 | RADIOLOGY REPORT (SQ) ---
EXAM DESCRIPTION: FOOT LEFT COMPLETE COMPLETED DATE/TIME: 07/03/2019 1:56 pm REASON FOR STUDY: CONTUSION OF LEFT FOOT, INITIAL ENCOUNTER J20.9 ACUTE BRONCHITIS, UNSPECIFIED S90 .32XA CONTUSION OF LEFT FOOT, INITIAL ENCOUNTER COMPARISON: None. NUMBER OF VIEWS: Three views. TECHNIQUE: AP, lateral and oblique radiographic images acquired of the left foot. LIMITATIONS: None. FINDINGS: MINERALIZATION: Normal. BONES: No fracture or dislocation. Dorsal and plantar calcaneal spurs are present. JOINTS: No effusions. SOFT TISSUES: No soft tissue swelling. No foreign body. OTHER: No other significant finding. IMPRESSION: Calcaneal spurs. No acute findings. TECHNICAL DOCUMENTATION: JOB ID: [id number] [employer]- All Rights Reserved Reading location - IP/workstation name: [email or web address]
== END ==
LOC: OD 13:31
PROVIDERS: ATTEND Family Medicine
DX: S90.32XA Contusion of left foot, initial encounter (principal); X58.XXXA Exposure to other specified factors, initial encounter; M77.32 Calcaneal spur, left foot; J20.9 Acute bronchitis, unspecified
CPT/HCPCS: 71046

== ENCOUNTER → 2019-12-28 | Outpatient (CLI) | payer MEDICARE ==
[2019-12-28 12:11] LABS: ABSOLUTE EOSINOPHILS # (AUTO) 0.2 10^3/uL (0.0-0.6); ABSOLUTE LYMPHOCYTES (AUTO) 1.6 10^3/uL (0.5-4.7); ABSOLUTE MONOCYTES (AUTO) 0.4 10^3/uL (0.1-1.4); ABSOLUTE NEUT (AUTO) 1.3 10^3/uL (1.7-8.2); BASOPHILS % (AUTO) 0.9 % (0-2); EOSINOPHILS % (AUTO) 4.7 % (0-6); HEMATOCRIT 32.5 % (36.0-47.0); HEMOGLOBIN 10.6 g/dL (12.0-15.5); LYMPHOCYTES % (AUTO) 45.6 % (13-45); MEAN CORPUSCULAR HEMOGLOBIN 25.7 pg (27.0-33.4); MEAN CORPUSCULAR HGB CONC 32.5 g/dL (32.0-36.0); MEAN CORPUSCULAR VOLUME 79 fl (80-97); MONOCYTES % (AUTO) 11.5 % (3-13); PLATELET COUNT 252 10^3/uL (150-450); RED BLOOD COUNT 4.11 10^6/uL (3.72-5.28); RED CELL DISTRIBUTION WIDTH 14.9 % (11.5-14.0); SEGMENTED NEUTROPHILS % (AUTO) 37.3 % (42-78); TOTAL CELLS COUNTED % (AUTO) 100 %; WHITE BLOOD COUNT 3.4 10^3/uL (4.0-10.5)
[2019-12-28 12:29] LABS: ALBUMIN 4.3 g/dL (3.5-5.0); ALKALINE PHOSPHATASE 94 U/L (38-126); ANION GAP 6 (5-19); ASPARTATE AMINO TRANSFERASE 18 U/L (14-36); BILIRUBIN,TOTAL 0.5 mg/dL (0.2-1.3); BLOOD UREA NITROGEN 21 mg/dL (7-20); CALCIUM 9.5 mg/dL (8.4-10.2); CARBON DIOXIDE 30 mmol/L (22-30); CHLORIDE 103 mmol/L (98-107); CHOLESTEROL 160.62 mg/dL (0-200); GLUCOSE 111 mg/dL (75-110); TOTAL PROTEIN 7.6 g/dL (6.3-8.2); TRIGLYCERIDES 73 mg/dL (<150)
[2019-12-28 12:40] LABS: DIRECT LDL 62 mg/dL (<100)
== END ==
LOC: OD 11:08
PROVIDERS: ATTEND Family Medicine
DX: E55.9 Vitamin D deficiency, unspecified (principal); E87.6 Hypokalemia; E53.9 Vitamin B deficiency, unspecified; E78.5 Hyperlipidemia, unspecified; R73.9 Hyperglycemia, unspecified; Z79.899 Other long term (current) drug therapy
CPT/HCPCS: 36415; 80053; 80061; 82306; 82607; 83036; 83735; 84443; 85025